=== PATIENT | female | born 1955 | race Caucasian/White ===

== ENCOUNTER 2024-04-23 14:13 | Outpatient (AMB) | payer MEDICARE, BC, SELFPAY ==
--- NOTE | 2024-04-23 14:31 | A.OFFVIS_ITS ---
Intake Visit Reasons: chronic UTI/ neuromuscular duysfunction of bladder Intake Note: New patient is present for Chronic UTI/Nueromuscular Dys of Bladder Patient has Suprapubic Catheter Family history of bladder Cancer(father) Patient gets her Catheter changed every 2 weeks due to getting infections Frequently Patient states that she currently has a UTI and will be getting her antibiotics later today. Patient has had SPT Catheter for 13 years Allergies cefazolin Allergy (Intermediate, Verified 04/23/24 14:49) dermatitis diphenhydramine Allergy (Intermediate, Verified 04/23/24 14:49) other sulfamethoxazole [From Sulfamethoxazole-Trimethoprim] Allergy (Intermediate, Verified 04/23/24 14:49) dyspnea trimethoprim [From Sulfamethoxazole-Trimethoprim] Allergy (Intermediate, Verified 04/23/24 14:49) dyspnea metaxalone Adverse Reaction (Intermediate, Verified 04/23/24 14:49) Depression adhesive tape silicones Allergy (Intermediate, Uncoded 04/23/24 14:49) Rash HPI Comments Details: Beena is a pleasant female. She is a patient of . She has seen for the following urologic conditions - paraplegic with neurogenic bladder Neurogenic bladder Longstanding paraplegia Suprapubic tube Does not cycle bladder Frequent UTIs - had followed with Dr. Dwyer for many years. On vitamin-C and methenamine. Discussion regarding bladder mucosal protection with bladder cycling Would need Botox in order to attempt bladder cycling Can be arranged with 200 units [facility] Medical History (Updated 05/04/24 @ 17:44 by Daniele Hoskins MD) Femur fracture Sleep apnea PONV (postoperative nausea and vomiting) Paraplegia Osteoporosis Deep vein thrombosis Fibromyalgia Heart murmur Suprapubic catheter Other hydronephrosis Recurrent UTI Neurogenic bladder Surgical History (Updated 04/23/24 @ 14:38 by DAMION Gauthier) H/O lumbosacral spine surgery History of hernia repair History of gastric bypass History of cholecystectomy History of carpal tunnel release Family History (Updated 04/23/24 @ 14:39 by DAMION Gauthier) Other Arthritis COPD (chronic obstructive pulmonary disease) OA (osteoarthritis) Stroke Urinary bladder cancer Social History (Updated 04/23/24 @ 14:40 by DAMION Gauthier) Patient Tobacco Use Status: Never used Tobacco Review of Systems Const Denies chills and Denies fever(s) Card Reports no additional complaints and Denies syncope Resp Denies cough GI Denies abdominal pain and Denies heartburn Reports as per HPI and Denies change in libido Neuro Denies syncope Psych Denies change in libido Endo Denies change in libido Physical Exam Const General: cooperative, healthy appearing, comfortable and no acute distress Orientation/consciousness: patient oriented x3 HEENT Face and sinus: Yes normal facial exam Mouth: moist mucous membranes Neck Neck: Yes normal visual inspection, Yes full ROM and Yes trachea midline Chest Chest palpation & inspection: normal inspection of the chest Resp Effort & Inspection: normal respiratory effort, able to speak in complete sentences and no respiratory distress GI Inspection: Yes normal to inspection Back/Spine/Pelvis Cervical Spine: normal cervical lordosis Thoracic/Lumbar Spine: thoracic and lumbar spine normal to inspection Skin General skin exam: no rashes or lesions noted Neuro General: patient oriented x3, gait normal, tone normal and moves all extremities Extrem General: Yes normal to inspection and Yes capillary refill normal Assessment & Plan Assessment & Plan (1) Paraplegia: Code(s): G82.20 - Paraplegia, unspecified Category: Medical (2) Suprapubic catheter: Code(s): Z93.59 - Other cystostomy status Category: Medical (3) Neurogenic bladder: Code(s): N31.9 - Neuromuscular dysfunction of bladder, unspecified Category: Medical Plan Risks, benefits and alternatives to therapy were discussed. These include but are not limited to infection, bleeding, damage to local organs and tissues, need for further interventions. Anesthetic risks regarding cardiac arrhythmia, blood clots, and potential mortality were discussed. The patient understands the typical recovery time and the outpatient nature of the procedure. After consideration of these risks the patient gives full informed consent and they wish to move ahead with the procedure. Cystoscopy with Botox 200 units Patient Instructions: Imaging studies, laboratory and physical exam results were discussed and reviewed in detail. No major barriers to patient understanding were identified. An opportunity to ask questions regarding the treatment plan was provided. All questions were answered. The patient expressed understanding and agreement with the above treatment plan. The patient is aware they should contact our office by phone for worsening of their current condition or the appearance of new urologic symptoms. Compliance is encouraged with any medications and followup testing that is ordered. It is a privilege to participate in the urologic care of your patient. If you have any questions or concerns regarding treatment for the above conditions, or other urologic issues, please do not hesitate to contact me. The office telephone contact is [phone]. This note is constructed using voice recognition software. While every effort has been made to ensure accuracy boilermaker assembly and erection errors may have been included. Yours sincerely, Dr Daniele Hoskins MD, DAV[facility] - Urology Providers of Expert, Compassionate Care for the Genitourinary System Coding Level of Care Code New Pt Level 4 (58861) Diagnoses Paraplegia G82.20 Suprapubic catheter Z93.59 Neurogenic bladder N31.9
== END 2024-04-23 15:38 | disposition home or self-care (01) ==
PROVIDERS: PCP Internal Medicine Nephrology; Visit Provider Urology
DX: G82.20 Paraplegia, unspecified (principal); N31.9 Neuromuscular dysfunction of bladder, unspecified; Z93.59 Other cystostomy status
CPT/HCPCS: 99204

== ENCOUNTER → 2024-04-23 14:13 | Outpatient (BNVA) | payer MEDICARE, BC, SELFPAY | PROVIDERS: PCP Internal Medicine Nephrology; Visit Provider Urology | DX: N31.9 Neuromuscular dysfunction of bladder, unspecified (principal); G82.20 Paraplegia, unspecified; N39.0 Urinary tract infection, site not specified; Z80.52 Family history of malignant neoplasm of bladder; Z93.50 Unspecified cystostomy status | CPT/HCPCS: 99202 ==

== ENCOUNTER 2024-05-17 08:29 | Day surgery (SDC) | payer MEDICARE, BC, SELFPAY ==
--- NOTE | 2024-05-14 13:45 | HO.ANESPROP2 ---
Documented by User: Claudia Silva NP 05/14/24 13:46 HPI - Anesthesia Eval Consult details Narrative: 68yo F for Cystoscopy Botox Injection Paraplegia PONV PMFSH Active Problems Active Problems: All Active Problems Paraplegia (Acute) Suprapubic catheter (Acute) Neurogenic bladder (Acute) Past Medical History Medical History (Updated 05/04/24 @ 17:44 by Daniele Hoskins MD) Femur fracture Sleep apnea PONV (postoperative nausea and vomiting) Paraplegia Osteoporosis Deep vein thrombosis Fibromyalgia Heart murmur Suprapubic catheter Other hydronephrosis Recurrent UTI Neurogenic bladder Family History Family History (Updated 04/23/24 @ 14:39 by DAMION Gauthier) Other Arthritis COPD (chronic obstructive pulmonary disease) OA (osteoarthritis) Stroke Urinary bladder cancer Surgical History Surgical History (Updated 04/23/24 @ 14:38 by DAMION Gauthier) H/O lumbosacral spine surgery History of hernia repair History of gastric bypass History of cholecystectomy History of carpal tunnel release Social History Social History (Updated 04/23/24 @ 14:40 by DAMION Gauthier) Patient Tobacco Use Status: Never used Tobacco Use of substances other than those prescribed or required for medical reasons: No Are you DNR?: No Advance Directives: No Advance Directives Information Provided: Yes Meds Allergies Allergy/AdvReac Type Severity Reaction Status Date / Time cefazolin Allergy Intermediate dermatitis Verified 05/17/24 09:19 diphenhydramine Allergy Intermediate other Verified 05/17/24 09:19 sulfamethoxazole Allergy Intermediate dyspnea Verified 05/17/24 09:19 [From Sulfamethoxazole-Trimethoprim] trimethoprim Allergy Intermediate dyspnea Verified 05/17/24 09:19 [From Sulfamethoxazole-Trimethoprim] metaxalone AdvReac Intermediate Depression Verified 05/17/24 09:19 adhesive tape silicones Allergy Intermediate Rash Uncoded 05/17/24 09:19 Home Medications ?Medication ?Instructions ?Recorded ?Confirmed ?Last Taken ?Type ascorbic acid (vitamin C) 500 mg 500 mg PO BID 04/23/24 05/17/24 Unknown History tablet (Vitamin C) duloxetine 60 mg capsule,delayed 60 mg PO DAILY 04/23/24 05/17/24 Unknown History release methenamine hippurate 1 gram tablet 1 g PO BID 04/23/24 05/17/24 Unknown History naloxone 4 mg/actuation nasal spray intranasal 04/23/24 Unknown History topiramate 200 mg tablet 200 mg PO DAILY 04/23/24 05/17/24 Unknown History morphine 15 mg tablet,extended 15 mg PO TID 05/17/24 05/17/24 Unknown History release oxycodone 15 mg tablet 15 mg PO QID PRN Pain 05/17/24 05/17/24 05/17/24 History Assessment and Plan Assessment Anesthesia Assessment: Chart Reviewed Documented by User: Tito Carmona MD 05/17/24 11:25 PMFSH Past Medical History Medical History (Updated 05/04/24 @ 17:44 by Daniele Hoskins MD) Femur fracture Sleep apnea PONV (postoperative nausea and vomiting) Paraplegia Osteoporosis Deep vein thrombosis Fibromyalgia Heart murmur Suprapubic catheter Other hydronephrosis Recurrent UTI Neurogenic bladder Family History Family History (Updated 04/23/24 @ 14:39 by DAMION Gauthier) Other Arthritis COPD (chronic obstructive pulmonary disease) OA (osteoarthritis) Stroke Urinary bladder cancer Family history of problems with anesthesia: No Surgical History Surgical History (Updated 04/23/24 @ 14:38 by DAMION Gatuhier) H/O lumbosacral spine surgery History of hernia repair History of gastric bypass History of cholecystectomy History of carpal tunnel release History of Problems with Anesthesia: No Social History Social History (Updated 04/23/24 @ 14:40 by DAMION Gauthier) Patient Tobacco Use Status: Never used Tobacco Use of substances other than those prescribed or required for medical reasons: No Are you DNR?: No Advance Directives: No Advance Directives Information Provided: Yes Meds Allergies Allergy/AdvReac Type Severity Reaction Status Date / Time cefazolin Allergy Intermediate dermatitis Verified 05/17/24 09:19 diphenhydramine Allergy Intermediate other Verified 05/17/24 09:19 sulfamethoxazole Allergy Intermediate dyspnea Verified 05/17/24 09:19 [From Sulfamethoxazole-Trimethoprim] trimethoprim Allergy Intermediate dyspnea Verified 05/17/24 09:19 [From Sulfamethoxazole-Trimethoprim] metaxalone AdvReac Intermediate Depression Verified 05/17/24 09:19 adhesive tape silicones Allergy Intermediate Rash Uncoded 05/17/24 09:19 Home Medications ?Medication ?Instructions ?Recorded ?Confirmed ?Last Taken ?Type ascorbic acid (vitamin C) 500 mg 500 mg PO BID 04/23/24 05/17/24 Unknown History tablet (Vitamin C) duloxetine 60 mg capsule,delayed 60 mg PO DAILY 04/23/24 05/17/24 Unknown History release methenamine hippurate 1 gram tablet 1 g PO BID 04/23/24 05/17/24 Unknown History naloxone 4 mg/actuation nasal spray intranasal 04/23/24 Unknown History topiramate 200 mg tablet 200 mg PO DAILY 04/23/24 05/17/24 Unknown History morphine 15 mg tablet,extended 15 mg PO TID 05/17/24 05/17/24 Unknown History release oxycodone 15 mg tablet 15 mg PO QID PRN Pain 05/17/24 05/17/24 05/17/24 History Exam Airway Mallampati Class: I TM Dist: >3cm Neck ROM: Full Denture: Upper Heart: ok Lungs: RA SpO2 95%. Assessment and Plan Assessment Anesthesia Assessment: Anesthesia Plan Discussed Final Anesthetic Review Family History of Problems with Anesthesia: No History of Problems with Anesthesia: No NPO: Yes ASA Class: IV Final Preanesthetic Review: No Changes in Pt Med Stat, Meds/Allgs Chart Reviewed, Consent Obtained/Reviewed and Anes Risks/Benef Reviewed Patient Risk: High Procedure Risk: Low Anesthetic Plan Anesthetic Plan: Agree w/ Assess. and Plan and TIVA Disposition: Standard PACU
[2024-05-17 09:57] VITALS: BP 105/42; PULSE 85; RESP 18; TEMP 36.7; O2SAT 95; BMI 28.9
[2024-05-17] MEDS: Lactated Ringers 1,000 ML 50 ML IVCONT (10:12)
--- NOTE | 2024-05-17 11:04 | MHC.SHP ---
Pre-Procedural Eval Section A - 24 Hr Update-Section A only Date of Service: 05/17/24 The patient is an INPATIENT: No Changes since office visit: No Cold of Flu in the past 2 weeks, No New Medical Problems, No Changes in Medication and No Patient answered all questions The patient has been examined within 24 hours of the surgical procedure. The History & Physical has been completed within 30 days and I have reviewed it.: Yes Section B - Complete if H&P > 30 days Chief Complaint: Neuromuscular dysfunction of bladder, unspecified Details of Present Illness: Cystoscopy with Botox to bladder Allergies: Allergies Allergy/AdvReac Type Severity Reaction Status Date / Time cefazolin Allergy Intermediate dermatitis Verified 05/17/24 09:19 diphenhydramine Allergy Intermediate other Verified 05/17/24 09:19 sulfamethoxazole Allergy Intermediate dyspnea Verified 05/17/24 09:19 [From Sulfamethoxazole-Trimethoprim] trimethoprim Allergy Intermediate dyspnea Verified 05/17/24 09:19 [From Sulfamethoxazole-Trimethoprim] metaxalone AdvReac Intermediate Depression Verified 05/17/24 09:19 adhesive tape silicones Allergy Intermediate Rash Uncoded 05/17/24 09:19 Plan Diagnosis/Plan: Unchanged I have reviewed the history and physical and performed a pertinent physical examination on my patient. No changes have occurred unless specified. Time Spent With Patient Time: Total time managing care of this patient today ____ minutes.
--- NOTE | 2024-05-17 11:56 | W.PM.OPN ---
Operative Note Operative Note Date of Service: 05/17/24 Narrative: PreOperative Diagnosis: Neurogenic bladder with failure of medications Post Operative Diagnosis: Neurogenic bladder with failure of medications Procedure: Cystoscopy with injection 200 units Botox intra detrusor muscle, change of suprapubic tube Surgeon: Dr Daniele Hoskins Anesthesia: Sedation Indications for procedure: Is a very pleasant 68-year-old female. Neurogenic bladder secondary to paraplegia. Long-term indwelling suprapubic tube. Bladder spasm with persistent pain and poor filling. Procedure: After informed consent was verified the patient was brought to the operating room and placed in a supine position. Anesthesia was administered per protocol. Cystoscopy performed with 22 Divehi cystoscope. Bladder was emptied of urine. Bladder was refilled. Using 200 units of Botox mixed in 10 cc of normal saline injections were placed at the back wall of the bladder. 0.5cc placed at each injection site. Injections were placed in a grid 5 across and for high. Injections were placed from the inferior to superior position. Trabeculations on the bladder wall with targeted for each injection site. Suprapubic tube changed to 20 Divehi silastic. Procedure was tolerated well. Patient was extubated and transferred in stable condition to the recovery area. Pathology: None Drains: None
[2024-05-17 12:04] VITALS: BP 103/50; PULSE 71; RESP 18; TEMP 36.3; O2SAT 98
[2024-05-17 12:09] VITALS: BP 97/57; PULSE 74; RESP 17; O2SAT 99
[2024-05-17 12:23] VITALS: BP 98/47; PULSE 68; RESP 17; TEMP 36.1; O2SAT 98
== END 2024-05-17 13:15 | disposition home or self-care (01) ==
PROVIDERS: PCP Family Medicine; Visit Provider Urology
PROC: 3E0K8GC Introduction of Other Therapeutic Substance into Genitourinary Tract, Via Natural or Artificial Opening Endoscopic (ICD-10-PCS; CPT 52287; principal; 2024-05-17 10:20)
DX: N31.9 Neuromuscular dysfunction of bladder, unspecified (principal); N32.89 Other specified disorders of bladder; Z93.59 Other cystostomy status; G82.20 Paraplegia, unspecified; Z87.440 Personal history of urinary (tract) infections; M81.0 Age-related osteoporosis without current pathological fracture; M79.7 Fibromyalgia; G47.30 Sleep apnea, unspecified; Z88.1 Allergy status to other antibiotic agents; Z88.8 Allergy status to other drugs, medicaments and biological substances; L23.1 Allergic contact dermatitis due to adhesives; Z79.899 Other long term (current) drug therapy; Z98.84 Bariatric surgery status; Z98.890 Other specified postprocedural states
CPT/HCPCS: 52287; 51705; J0585; J2704; J3010

== ENCOUNTER → 2024-05-17 08:29 | Outpatient (BNV) | payer MEDICARE, BC, SELFPAY | PROVIDERS: PCP Family Medicine; Visit Provider Urology | DX: N31.9 Neuromuscular dysfunction of bladder, unspecified (principal) | CPT/HCPCS: 51705; 52287 ==

== ENCOUNTER → 2024-06-01 10:42 | Outpatient (BNVA) | payer MEDICARE, BC, SELFPAY | PROVIDERS: PCP Family Medicine; Visit Provider Urology ==

== ENCOUNTER 2024-08-24 11:58 | Outpatient (AMB) | payer MEDICARE, BC, SELFPAY ==
--- NOTE | 2024-08-24 11:59 | A.OFFVIS_ITS ---
Intake Visit Reasons: Cysto, Botox- follow up Intake Note: Patient is Present for Follow Up Cysto/Botox Urology Medication: Methenamine, Vitamin C, Oxybutynin Antibiotic Allergies:Cefazosin, Sulfa, Trimethroprim Blood Thinners: None Public Health Social Worker Required: No Real Estate Transaction Coordinator: Real Estate Transaction Coordinator Present Accompanied by: Family/Other Allergies cefazolin Allergy (Intermediate, Verified 08/24/24 12:03) dermatitis diphenhydramine Allergy (Intermediate, Verified 08/24/24 12:03) other sulfamethoxazole [From Sulfamethoxazole-Trimethoprim] Allergy (Intermediate, Verified 08/24/24 12:03) dyspnea trimethoprim [From Sulfamethoxazole-Trimethoprim] Allergy (Intermediate, Verified 08/24/24 12:03) dyspnea metaxalone Adverse Reaction (Intermediate, Verified 08/24/24 12:03) Depression adhesive tape silicones Allergy (Intermediate, Uncoded 08/24/24 12:03) Rash HPI Comments Details: Beena is a pleasant female. She is a patient of . She has seen for the following urologic conditions - paraplegic with neurogenic bladder Discussed prior Botox Will repeat in September Thinks there has been some benefit Uses 20 [place] Bard silastic catheter for suprapubic drainage Required to change catheter every 2 weeks If does not change catheter every 2 weeks has detrimental urinary tract infection. These have previously resulted in sepsis with ICU admission. Prescriptions renewed Catheter to be changed every 2 weeks to minimize detrimental UTI recurrence Neurogenic bladder Longstanding paraplegia Suprapubic tube Does not cycle bladder Frequent UTIs - had followed with Dr. Dwyer for many years. On vitamin-C and methenamine. Discussion regarding bladder mucosal protection with bladder cycling Botox - May 2024 [facility] Medical History (Updated 05/04/24 @ 17:44 by Daniele Hoskins MD) Femur fracture Sleep apnea PONV (postoperative nausea and vomiting) Paraplegia Osteoporosis Deep vein thrombosis Fibromyalgia Heart murmur Suprapubic catheter Other hydronephrosis Recurrent UTI Neurogenic bladder Surgical History (Updated 04/23/24 @ 14:38 by DAMION Gauthier) H/O lumbosacral spine surgery History of hernia repair History of gastric bypass History of cholecystectomy History of carpal tunnel release Family History (Updated 04/23/24 @ 14:39 by DAMION Gauthier) Other Arthritis COPD (chronic obstructive pulmonary disease) OA (osteoarthritis) Stroke Urinary bladder cancer Social History (Updated 04/23/24 @ 14:40 by DAMION Gauthier) Patient Tobacco Use Status: Never used Tobacco Review of Systems Const Denies chills and Denies fever(s) Card Reports no additional complaints and Denies syncope Resp Denies cough GI Denies abdominal pain and Denies heartburn Reports as per HPI and Denies change in libido Neuro Denies syncope Psych Denies change in libido Endo Denies change in libido Physical Exam Const General: cooperative, healthy appearing, comfortable and no acute distress Orientation/consciousness: patient oriented x3 HEENT Face and sinus: Yes normal facial exam Mouth: moist mucous membranes Neck Neck: Yes normal visual inspection, Yes full ROM and Yes trachea midline Chest Chest palpation & inspection: normal inspection of the chest Resp Effort & Inspection: normal respiratory effort, able to speak in complete sentences and no respiratory distress GI Inspection: Yes normal to inspection Back/Spine/Pelvis Cervical Spine: normal cervical lordosis Thoracic/Lumbar Spine: thoracic and lumbar spine normal to inspection Skin General skin exam: no rashes or lesions noted Neuro General: patient oriented x3, gait normal, tone normal and moves all extremities Extrem General: Yes normal to inspection and Yes capillary refill normal Assessment & Plan Assessment & Plan (1) Suprapubic catheter: Code(s): Z93.59 - Other cystostomy status Category: Medical (2) Paraplegia: Code(s): G82.20 - Paraplegia, unspecified Category: Medical (3) Neurogenic bladder: Code(s): N31.9 - Neuromuscular dysfunction of bladder, unspecified Category: Medical Plan Six-month follow-up Medications: New syringe (disposable) (BD Syringe Catheter Tip) As directed - for bladder irrigation 4 ea 1RF catheter (Silastic Carbajal Catheter) As directed - Bard 20 Fr Silastic catheter - 6 catheters for 12 weeks. Requires 1 catheter for every 2 weeks secondary to UTI with hospital admission 6 ea 1RF Changed From catheterization tray As directed, 20 uzbek carbajal catheter, change catheter every two weeks. 10 ea 12RF To catheterization tray As directed change catheter every two weeks secondary to frequent UTI with hospital admission 6 ea 1RF From urinary bag (Urinary Leg Bag kit) As directed 12 ea 12RF To urinary bag (Urinary Leg Bag kit) As directed - 1 bag every 30 days 3 ea 1RF Refilled irrigation set As directed 6 ea 1RF Discontinued oxybutynin chloride Discontinued Reason: Doctor's Order 5 mg PO TID 5 days PRN 15 tabs 0RF bladder spasms Patient Instructions: Imaging studies, laboratory and physical exam results were discussed and reviewed in detail. No major barriers to patient understanding were identified. An opportunity to ask questions regarding the treatment plan was provided. All questions were answered. The patient expressed understanding and agreement with the above treatment plan. The patient is aware they should contact our office by phone for worsening of their current condition or the appearance of new urologic symptoms. Compliance i s encouraged with any medications and followup testing that is ordered. It is a privilege to participate in the urologic care of your patient. If you have any questions or concerns regarding treatment for the above conditions, or other urologic issues, please do not hesitate to contact me. The office telephone contact is [phone]. This note is constructed using voice recognition software. While every effort has been made to ensure accuracy laundry laborer errors may have been included. Yours sincerely, Dr Daniele Hoskins MD, [facility] - Urology Providers of Expert, Compassionate Care for the Genitourinary System Coding Level of Care Code Est Pt Level 4 (55084) Diagnoses Suprapubic catheter Z93.59 Paraplegia G82.20 Neurogenic bladder N31.9
== END 2024-08-24 12:38 | disposition home or self-care (01) ==
PROVIDERS: PCP Family Medicine; Visit Provider Urology
DX: Z93.59 Other cystostomy status (principal); G82.20 Paraplegia, unspecified; N31.9 Neuromuscular dysfunction of bladder, unspecified
CPT/HCPCS: 99214

== ENCOUNTER → 2024-08-24 11:58 | Outpatient (BNVA) | payer MEDICARE, BC, SELFPAY | PROVIDERS: PCP Family Medicine; Visit Provider Urology | DX: N31.9 Neuromuscular dysfunction of bladder, unspecified (principal); G82.20 Paraplegia, unspecified; Z93.59 Other cystostomy status | CPT/HCPCS: 99212 ==

== ENCOUNTER 2024-10-04 12:20 | Day surgery (SDC) | payer MEDICARE, BC, SELFPAY ==
[2024-09-30 10:36] VITALS: BMI 28.9
--- NOTE | 2024-10-01 12:18 | P.CONAN_ITS ---
Documented by User: Claudia Silva NP 10/01/24 12:20 HPI - Anesthesia Eval Consult details Narrative: 69yo F for Cystoscopy Botox Insulation 200 units s/p same 04/2024 with TIVA Paraplegia PONV Chronic opioids PMFSH Active Problems Active Problems: All Active Problems Urinary retention (Acute) Paraplegia (Acute) Suprapubic catheter (Acute) Neurogenic bladder (Acute) Past Medical History Medical History (Updated 09/30/24 @ 10:47 by Alma Delia Bonilla RN) Peripheral neuropathy HTN (hypertension) Depression Femur fracture Sleep apnea PONV (postoperative nausea and vomiting) Paraplegia Osteoporosis Deep vein thrombosis Fibromyalgia Heart murmur Suprapubic catheter Other hydronephrosis Recurrent UTI Neurogenic bladder Family History Family History (Updated 04/23/24 @ 14:39 by DAMION Gauthier) Other Arthritis COPD (chronic obstructive pulmonary disease) OA (osteoarthritis) Stroke Urinary bladder cancer Family history of problems with anesthesia: No Surgical History Surgical History (Updated 09/30/24 @ 10:23 by Alma Delia Bonilla RN) Hx of cystoscopy H/O lumbosacral spine surgery History of hernia repair History of gastric bypass History of cholecystectomy History of carpal tunnel release History of Problems with Anesthesia: No Social History Social History (Updated 04/23/24 @ 14:40 by DAMION Gauthier) Patient Tobacco Use Status: Never used Tobacco Advance Directives: No Advance Directives Information Provided: Yes Meds Allergies Allergy/AdvReac Type Severity Reaction Status Date / Time cefazolin Allergy Intermediate dermatitis Verified 10/04/24 13:51 diphenhydramine Allergy Intermediate other Verified 10/04/24 13:51 sulfamethoxazole Allergy Intermediate dyspnea Verified 10/04/24 13:51 [From Sulfamethoxazole-Trimethoprim] trimethoprim Allergy Intermediate dyspnea Verified 10/04/24 13:51 [From Sulfamethoxazole-Trimethoprim] metaxalone AdvReac Intermediate Depression Verified 10/04/24 13:51 adhesive tape silicones Allergy Intermediate Rash Uncoded 10/04/24 13:51 Home Medications ?Medication ?Instructions ?Recorded ?Confirmed ?Last Taken ?Type ascorbic acid (vitamin C) 500 mg 500 mg PO BID 04/23/24 10/04/24 Unknown History tablet (Vitamin C) duloxetine 60 mg capsule,delayed 60 mg PO DAILY 04/23/24 10/04/24 Unknown History release methenamine hippurate 1 gram tablet 1 g PO BID 04/23/24 10/04/24 Unknown History naloxone 4 mg/actuation nasal spray 4 mg intranasal ONCE PRN overdose 04/23/24 10/04/24 Unknown History topiramate 200 mg tablet 200 mg PO DAILY 04/23/24 10/04/24 Unknown History morphine 15 mg tablet,extended 15 mg PO TID 05/17/24 10/04/24 Unknown History release oxycodone 15 mg tablet 15 mg PO QID PRN Pain 05/17/24 10/04/24 10/04/24 11:00 History acyclovir 200 mg capsule 200 mg PO TID PRN Outbreak 09/30/24 10/04/24 Unknown History aspirin 81 mg tablet,delayed 81 mg PO DAILY 09/30/24 10/04/24 Unknown History release baclofen 10 mg tablet 20 mg PO TID 09/30/24 10/04/24 10/04/24 11:00 History calcium citrate 250 mg 2 tab PO BID 09/30/24 10/04/24 Unknown History calcium-vitamin D3 5 mcg (200 unit) tablet furosemide 40 mg tablet 60 mg PO DAILY 09/30/24 10/04/24 Unknown History multivitamin 1 tab PO DAILY 09/30/24 10/04/24 Unknown History Exam Height,Weight and Vital Signs: Height 5 ft 6 in Weight 81.193 kg Assessment and Plan Assessment Anesthesia Assessment: Chart Reviewed Final Anesthetic Review Family History of Problems with Anesthesia: No History of Problems with Anesthesia: No Documented by User: Ginger Arora MD 10/04/24 14:16 [facility] Past Medical History Medical History (Updated 09/30/24 @ 10:47 by Alma Delia Bonilla RN) Peripheral neuropathy HTN (hypertension) Depression Femur fracture Sleep apnea PONV (postoperative nausea and vomiting) Paraplegia Osteoporosis Deep vein thrombosis Fibromyalgia Heart murmur Suprapubic catheter Other hydronephrosis Recurrent UTI Neurogenic bladder Family History Family History (Updated 04/23/24 @ 14:39 by DAMION Gauthier) Other Arthritis COPD (chronic obstructive pulmonary disease) OA (osteoarthritis) Stroke Urinary bladder cancer Surgical History Surgical History (Updated 09/30/24 @ 10:23 by Alma Delia Bonilla RN) Hx of cystoscopy H/O lumbosacral spine surgery History of hernia repair History of gastric bypass History of cholecystectomy History of carpal tunnel release Social History Social History (Updated 04/23/24 @ 14:40 by DAMION Gauthier) Patient Tobacco Use Status: Never used Tobacco Advance Directives: No Advance Directives Information Provided: Yes Meds Allergies Allergy/AdvReac Type Severity Reaction Status Date / Time cefazolin Allergy Intermediate dermatitis Verified 10/04/24 13:51 diphenhydramine Allergy Intermediate other Verified 10/04/24 13:51 sulfamethoxazole Allergy Intermediate dyspnea Verified 10/04/24 13:51 [From Sulfamethoxazole-Trimethoprim] trimethoprim Allergy Intermediate dyspnea Verified 10/04/24 13:51 [From Sulfamethoxazole-Trimethoprim] metaxalone AdvReac Intermediate Depression Verified 10/04/24 13:51 adhesive tape silicones Allergy Intermediate Rash Uncoded 10/04/24 13:51 Home Medications ?Medication ?Instructions ?Recorded ?Confirmed ?Last Taken ?Type ascorbic acid (vitamin C) 500 mg 500 mg PO BID 04/23/24 10/04/24 Unknown History tablet (Vitamin C) duloxetine 60 mg capsule,delayed 60 mg PO DAILY 04/23/24 10/04/24 Unknown History release methenamine hippurate 1 gram tablet 1 g PO BID 04/23/24 10/04/24 Unknown History naloxone 4 mg/actuation nasal spray 4 mg intranasal ONCE PRN overdose 04/23/24 10/04/24 Unknown History topiramate 200 mg tablet 200 mg PO DAILY 04/23/24 10/04/24 Unknown History morphine 15 mg tablet,extended 15 mg PO TID 05/17/24 10/04/24 Unknown History release oxycodone 15 mg tablet 15 mg PO QID PRN Pain 05/17/24 10/04/24 10/04/24 11:00 History acyclovir 200 mg capsule 200 mg PO TID PRN Outbreak 09/30/24 10/04/24 Unknown History aspirin 81 mg tablet,delayed 81 mg PO DAILY 09/30/24 10/04/24 Unknown History release baclofen 10 mg tablet 20 mg PO TID 09/30/24 10/04/24 10/04/24 11:00 History calcium citrate 250 mg 2 tab PO BID 09/30/24 10/04/24 Unknown History calcium-vitamin D3 5 mcg (200 unit) tablet furosemide 40 mg tablet 60 mg PO DAILY 09/30/24 10/04/24 Unknown History multivitamin 1 tab PO DAILY 09/30/24 10/04/24 Unknown History Exam Airway Mallampati Class: II TM Dist: >3cm Neck ROM: Full Denture: Upper Heart: rrr Lungs: cta Assessment and Plan Assessment Anesthesia Assessment: Anesthesia Plan Discussed Final Anesthetic Review NPO: Yes ASA Class: III Final Preanesthetic Review: No Changes in Pt Med Stat, Meds/Allgs Chart Reviewed and Consent Obtained/Reviewed Patient Risk: Intermediate Procedure Risk: Low Anesthetic Plan Anesthetic Plan: MAC: Disposition: Standard PACU
[2024-10-04 13:56] VITALS: BP 110/55; PULSE 55; RESP 16; TEMP 36.4; O2SAT 99; BMI 28.1
[2024-10-04] MEDS: Lactated Ringers 1,000 ML 100 ML IVCONT (14:31)
--- NOTE | 2024-10-04 15:03 | MHC.SHP ---
Pre-Procedural Eval Section A - 24 Hr Update-Section A only Date of Service: 10/04/24 The patient is an INPATIENT: No Changes since office visit: No Cold of Flu in the past 2 weeks, No New Medical Problems, No Changes in Medication and No Patient answered all questions The patient has been examined within 24 hours of the surgical procedure. The History & Physical has been completed within 30 days and I have reviewed it.: Yes Section B - Complete if H&P > 30 days Chief Complaint: Neuromuscular dysfunction of bladder, unspecified Details of Present Illness: Cystoscopy, bladder Botox Allergies: Allergies Allergy/AdvReac Type Severity Reaction Status Date / Time cefazolin Allergy Intermediate dermatitis Verified 10/04/24 13:51 diphenhydramine Allergy Intermediate other Verified 10/04/24 13:51 sulfamethoxazole Allergy Intermediate dyspnea Verified 10/04/24 13:51 [From Sulfamethoxazole-Trimethoprim] trimethoprim Allergy Intermediate dyspnea Verified 10/04/24 13:51 [From Sulfamethoxazole-Trimethoprim] metaxalone AdvReac Intermediate Depression Verified 10/04/24 13:51 adhesive tape silicones Allergy Intermediate Rash Uncoded 10/04/24 13:51 Plan I have reviewed the history and physical and performed a pertinent physical examination on my patient. No changes have occurred unless specified. Time Spent With Patient Time: Total time managing care of this patient today ____ minutes.
--- NOTE | 2024-10-04 15:37 | P.OP_ITS ---
Operative Note Operative Note Date of Service: 10/04/24 Narrative: PreOperative Diagnosis: Neurogenic bladder with failure of medications Post Operative Diagnosis: Neurogenic bladder with failure of medications Procedure: Cystoscopy with injection 200 units Botox intra detrusor muscle Surgeon: Dr Daniele Hoskins Anesthesia: Sedation Indications for procedure: Is a very pleasant 69-year-old female. Neurogenic bladder secondary to paraplegia. Long-term indwelling suprapubic tube. Bladder spasm with persistent pain and poor filling. Procedure: After informed consent was verified the patient was brought to the operating room and placed in a supine position. Anesthesia was administered per protocol. Cystoscopy performed with 22 Kisw[place]ili cystoscope. Bladder was emptied of urine. Bladder was refilled. Using 200 units of Botox mixed in 10 cc of normal saline injections were placed at the back wall of the bladder. 0.5cc placed at each i njection site. Injections were placed in a grid 5 across and for high. Injections were placed from the inferior to superior position. Trabeculations on the bladder wall with targeted for each injection site. Procedure was tolerated well. Patient was extubated and transferred in stable condition to the recovery area. Pathology: None Drains: None
[2024-10-04 15:45] VITALS: BP 95/35; PULSE 72; RESP 13; TEMP 36.3; O2SAT 100
[2024-10-04 16:00] VITALS: BP 102/53; PULSE 65; RESP 13; O2SAT 100
[2024-10-04 16:08] VITALS: BP 110/52; PULSE 72; RESP 16; TEMP 36.3; O2SAT 100
== END 2024-10-04 16:29 | disposition home or self-care (01) ==
PROVIDERS: PCP Family Medicine; Visit Provider Urology
PROC: 3E0K8GC Introduction of Other Therapeutic Substance into Genitourinary Tract, Via Natural or Artificial Opening Endoscopic (ICD-10-PCS; CPT 52287; principal; 2024-10-04 13:30)
DX: N31.9 Neuromuscular dysfunction of bladder, unspecified (principal); R33.8 Other retention of urine; Z93.59 Other cystostomy status; Z93.6 Other artificial openings of urinary tract status; Z87.440 Personal history of urinary (tract) infections; G82.20 Paraplegia, unspecified; Z99.3 Dependence on wheelchair; M79.7 Fibromyalgia; M81.0 Age-related osteoporosis without current pathological fracture; G47.30 Sleep apnea, unspecified; Z79.891 Long term (current) use of opiate analgesic; Z79.82 Long term (current) use of aspirin; Z79.899 Other long term (current) drug therapy; Z88.1 Allergy status to other antibiotic agents; Z88.2 Allergy status to sulfonamides; Z98.84 Bariatric surgery status; Z98.890 Other specified postprocedural states
CPT/HCPCS: 52287; J0585; J1956; J2003; J2704; J3010

== ENCOUNTER → 2024-10-04 12:20 | Outpatient (BNV) | payer MEDICARE, BC, SELFPAY | PROVIDERS: PCP Family Medicine; Visit Provider Urology | DX: N31.9 Neuromuscular dysfunction of bladder, unspecified (principal) | CPT/HCPCS: 52287 ==

== ENCOUNTER → 2024-10-25 13:09 | Outpatient (BNVA) | payer MEDICARE, BC, SELFPAY | PROVIDERS: PCP Family Medicine; Visit Provider Urology | DX: N31.9 Neuromuscular dysfunction of bladder, unspecified (principal); R33.9 Retention of urine, unspecified | CPT/HCPCS: 51798 ==

== ENCOUNTER 2025-01-11 14:19 | Outpatient (AMB) | payer MEDICARE, BC, SELFPAY ==
--- NOTE | 2025-01-11 14:33 | A.OFFVIS_ITS ---
Intake Visit Reasons: Botox- follow up(SPTube) Intake Note: Patient is present for BOTOX F/U (SPT TUBE) Urology Medication:OXYBUTYNIN Antibiotic Allergy:SULFA,CEFAZOLIN,TRIMETHOPRIM Blood Thinner:ASPIRIN Carpet Installer Required: No Allergies cefazolin Allergy (Intermediate, Verified 01/11/25 14:37) dermatitis diphenhydramine Allergy (Intermediate, Verified 01/11/25 14:37) other sulfamethoxazole [From Sulfamethoxazole-Trimethoprim] Allergy (Intermediate, Verified 01/11/25 14:37) dyspnea trimethoprim [From Sulfamethoxazole-Trimethoprim] Allergy (Intermediate, Verified 01/11/25 14:37) dyspnea metaxalone Adverse Reaction (Intermediate, Verified 01/11/25 14:37) Depression adhesive tape silicones Allergy (Intermediate, Uncoded 01/11/25 14:37) Rash HPI Comments Details: Beena is a pleasant female. She is a patient of . She has seen for the following urologic conditions - paraplegic with neurogenic bladder - recurrent UTI Feels there has been benefit from Botox Would like vitamin-C and methenamine renewed Had UTI which responded to Macrobid Fourteen day macro prescription provided in order to use when symptomatic Uses 20 [place] silastic catheter for suprapubic drainage Required to change catheter every 2 weeks If does not change catheter every 2 weeks has detrimental urinary tract infection. These have previously resulted in sepsis with ICU admission. Neurogenic bladder Longstanding paraplegia Suprapubic tube Does not cycle bladder Frequent UTIs - had followed with Dr. Dwyer for many years. On vitamin-C and methenamine. Discussion regarding bladder mucosal protection with bladder cycling Botox - May 2024, 10/10 Recurrent UTI Microbiology - 09/09 pansensitive E coli [facility] Medical History (Updated 01/11/25 @ 15:20 by Daniele Hoskins MD) Peripheral neuropathy HTN (hypertension) Depression Femur fracture Sleep apnea PONV (postoperative nausea and vomiting) Paraplegia Osteoporosis Deep vein thrombosis Fibromyalgia Heart murmur Suprapubic catheter Other hydronephrosis Recurrent UTI Neurogenic bladder Surgical History (Updated 09/30/24 @ 10:23 by Alma Delia Bonilla RN) Hx of cystoscopy H/O lumbosacral spine surgery History of hernia repair History of gastric bypass History of cholecystectomy History of carpal tunnel release Family History (Updated 04/23/24 @ 14:39 by DAMION Gauthier) Other Arthritis COPD (chronic obstructive pulmonary disease) OA (osteoarthritis) Stroke Urinary bladder cancer Social History (Updated 04/23/24 @ 14:40 by DAMION Gauthier) Patient Tobacco Use Status: Never used Tobacco Review of Systems Const Denies chills and Denies fever(s) Card Reports no additional complaints and Denies syncope Resp Denies cough GI Denies abdominal pain and Denies heartburn Reports as per HPI and Denies change in libido Neuro Denies syncope Psych Denies change in libido Endo Denies change in libido Physical Exam Const General: cooperative, healthy appearing, comfortable and no acute distress Orientation/consciousness: patient oriented x3 HEENT Face and sinus: Yes normal facial exam Mouth: moist mucous membranes Neck Neck: Yes normal visual inspection, Yes full ROM and Yes trachea midline Chest Chest palpation & inspection: normal inspection of the chest Resp Effort & Inspection: normal respiratory effort, able to speak in complete sentences and no respiratory distress GI Inspection: Yes normal to inspection Back/Spine/Pelvis Cervical Spine: normal cervical lordosis Thoracic/Lumbar Spine: thoracic and lumbar spine normal to inspection Skin General skin exam: no rashes or lesions noted Neuro General: patient oriented x3, gait normal, tone normal and moves all extremities Extrem General: Yes normal to inspection and Yes capillary refill normal Assessment & Plan Assessment & Plan (1) Neurogenic bladder: Code(s): N31.9 - Neuromuscular dysfunction of bladder, unspecified Category: Medical (2) Recurrent UTI: Code(s): N39.0 - Urinary tract infection, site not specified Category: Medical Plan Refill methenamine and vitamin-C Refill oxybutynin Add Macrobid 14 days in case she gets in trouble with an infection She will call if feels Botox is wearing off Medications: New nitrofurantoin macrocrystal must administer with a meal/food 100 mg PO BID 14 days 28 caps 0RF N39.0 - Urinary tract infection, site not specified Changed From methenamine hippurate 1 g PO BID To methenamine hippurate 1 g PO BID 90 days 180 tabs 1RF From ascorbic acid (vitamin C) (Vitamin C) 500 mg PO BID To ascorbic acid (vitamin C) (Vitamin C) 500 mg PO BID 90 days 180 tabs 1RF Refilled oxybutynin chloride ER change in dose 10 mg (2 x 5 mg) PO DAILY 90 days 180 tabs 1RF Patient Instructions: This note is constructed using voice recognition software. While every effort has been made to ensure accuracy ibm bpm architect errors may have been included. Imaging studies, laboratory and physical exam results were discussed and reviewed in detail. No major barriers to patient understanding were identified. An opportunity to ask questions regarding the treatment plan was provided. All questions were answered. The patient expressed understanding and agreement with the above treatment plan. The patient is aware they should contact our office by phone for worsening of their current condition or the appearance of new urologic symptoms. Compliance is encouraged with any medications and followup testing that is ordered. It is a privilege to participate in the urologic care of your patient. If you have any questions or concerns regarding treatment for the above conditions, or other urologic issues, please do not hesitate to contact me. The office telephone contact is [phone]. Sincerely, Dr Daniele Hoskins MD, [facility] - Urology Compassionate Specialist Care for the Genitourinary System Coding Level of Care Code Est Pt Level 4 (52699) Diagnoses Neurogenic bladder N31.9 Recurrent UTI N39.0
--- OUTSIDE RECORDS SUMMARY | 2025-01-11 17:57 | XMS_ITS | Clinical Summary ---
Author Organization [facility] Address [address] [place] [address] Care Team Providers Care Sample Distributor Name Role Phone Unavailable Primary Care Provider Unavailabl e Allergies Active Allergy Reactions Criticality Noted Date Comments Adhesive Tape 09/11/2016 Rash Cefazolin 09/11/2016 Metaxalone 09/11/2016 Depression Sulfasalazine 09/11/2016 Rash, SOB Medications Medication Sig Dispensed Refills Start Date End Date Status mesalamine (ASACOL) 400 MG EC tablet Take 400 mg by mouth 3 (three) times a day. 0 Active aspirin EC 81 MG tablet Take 81 mg by mouth daily. 0 Active baclofen (LIORESAL) 10 MG tablet Take 10 mg by mouth 3 (three) times a day. 0 Active Calcium Carbonate Antacid 648 MG TABS Take 648 mg by mouth 3 (three) times a day with meals. 0 Active estradiol (CLIMARA) 0.1 MG/24HR Place 1 patch onto the skin once a week. 0 Active duloxetine (CYMBALTA) DR capsule 20 mg Take 20 mg by mouth daily. 0 Active furosemide (LASIX) 80 MG tablet Take 80 mg by mouth 2 (two) times a day. 0 Active lidocaine (XYLOCAINE) 2 % jelly Apply topically as needed. 0 Active methylphenidate (CONCERTA) 36 MG CR tablet Take 36 mg by mouth every morning. 0 Active Morphine Sulfate ER (MS CONTIN) 15 MG TBCR Take 15 mg by mouth every 12 (twelve) hours. 0 Active nitrofurantoin (MACRODANTIN) 100 MG capsule Take 100 mg by mouth 4 (four) times a day. 0 Active OxyCODONE HCl ER (OXYCONTIN) 20 MG T12A controlled release tablet Take 20 mg by mouth every 12 (twelve) hours. 0 Active venlafaxine (EFFEXOR) 75 MG tablet Take 75 mg by mouth 2 (two) times a day. 0 Active vitamin C (ASCORBIC ACID) 500 MG tablet Take 500 mg by mouth daily. 0 Active SUMAtriptan (IMITREX) 50 MG tablet Take 50 mg by mouth every 2 (two) hours as needed for migraine. 0 Active ibuprofen (ADVIL,MOTRIN) 100 MG/5ML suspension Take 800 mg/kg by mouth every 6 (six) hours as needed for mild pain (1-3). 0 Active nystatin (MYCOSTATIN) ointment Apply topically 2 (two) times a day. 0 Active oxybutynin (DITROPAN) 5 MG tablet Take 5 mg by mouth 3 (three) times a day. 0 Active conjugated estrogens (PREMARIN) vaginal cream Place vaginally daily. 0 Active Social History Tobacco Use Types Packs/Day Years Used Date Smoking Tobacco: Never Assessed Sex and Gender Information Value Date Recorded Sex Assigned at Not on file Gender Identity Not on file Sexual Orientation Not on file Plan of Treatment Health Maintenance Due Date Last Done Comments Hepatitis C Screening 1955 COVID-19 Vaccine (#1) [birth year]07[birth year]1956 Depression Screening 1967 Preventative Health Evaluation 1973 DTap / Tdap / Td (1 - Tdap) 1974 Colon Cancer Screening (Colonoscopy) 2000 Breast Cancer Screening (Mammogram) 2005 Shingrix-Zoster Vaccine (1 of 2) 2005 Fall Risk Assessment 2020 Osteoporosis Screening (DEXA Scan) 2020 Pneumococcal Vaccine (1 of 1 - PCV) 2020 Influenza Vaccine (#1) 2024 RSV Adult > 60+ Yrs or Pregn ant (1 - 1-dose 75+ series) 2030 Hepatitis B Vaccines Aged Out No long er eligible based on patient's age to complete this topic RSV Ped < 20 months Aged Out No longe r eligible based on patient's age to complete this topic
--- OUTSIDE RECORDS SUMMARY | 2025-01-11 17:57 | XMS_ITS | Data Portability ---
Author Organization Formerly [facility] [employer], [email or web address] Address [address] [place] [address] [place] [address] Care Team Providers Care Range Aid Name Role Phone NATIVIDAD MAY Primary Care Provider [phone] NATIVIDAD MAY Referring Provider [phone] Assessment Encounter Date Assessment Date Assessment LastModified by Organization Details LastModified Time 07/27/2021 07/27/2021 IMPRESSION: Chronic headache with migrainous features. Propranolol substitution for metoprolol, since initial neurology consultation May 01, 2020, has helped significantly although partially. She again does not want to make any more changes. She had emphasized that there were long-term fluctuations and she wanted to presiding judge these. She wanted a 3-month follow-up but follow-up ended up being 1 year. Indeed, fluctuations have emerged with at least 2 separate weeks with daily headaches with great humidity. Nevertheless, even with understanding these fluctuations she declines any attempt for optimization of migraine prevention. She has had Climara patch discontinued, no other changes and so, we reviewed: Medication review: Methylphenidate 36 mg twice a day, morphine sulfate extended release 15 mg 4 times a day, oxycodone 15 mg 4 times a day, potassium, baclofen 10 mg 3 times a day, aspirin 81 mg daily, calcium, multivitamin, cyclobenzaprine 10 mg twice a day, duloxetine 60 mg daily, elmiron 100 mg 3 times a day, furosemide 60 mg daily lidocaine jelly. Review of pathway of choice of propranolol: She was on metoprolol for migraine prevention for about a week and thought that it might have been starting to work for her headache syndrome but then stopped because of rash. The rash turned out to be poison chris. She never restarted metoprolol. She was not on the metoprolol for blood pressure control, she emphasizes. She had high blood pressure in the past (2002 per chart) but has no problems with blood pressure more recently. Previous discussions: Initial consultation: Her wonders whether medications could cause part of her headache. Long-term opiate use can cause medication overuse headache. Her untreated sleep apnea may also be a chronic trigger for worsened headaches. She emphasizes that she cannot tolerate sleep apnea mask. PLAN Beena Conde Deangelo July 27, 2021 For migraine prevention: CONTINUE Propranolol ER 80 mg capsule, one capsule every evening Follow-up in 11 months [email or web address] Not available 07/27/2021 13:17:35 07/10/2022 07/10/2022 IMPRESSION: Chronic headache with migrainous features. Migraine is both increased in frequency and change in character? s witched from right to left side mostly. I do not have a good reason. Increase in propranolol has not helped and moderate dose of topiramate has not helped. I will get head CT and increase topiramate. If head CT is unrevealing, we will titrate topiramate to 50 mg twice daily and if this does not help, consider CGRP inhibitor medication. PLAN Beena Conde Deangelo July 10, 2022 CT head without contrast for worsening headache The imaging facility below should call you within a few days. If they do not call within a week, please call them to understand when you will be scheduled for your imaging. If there is any uncertainty or confusion, please call us to help clarify things. [phone] [facility] [address] [place] [address] Phone [phone]? [phone] INCREASE topiramate 25 mg tablets from 2 tablets at bedtime to 3 tablets at bedtime I am taking over the prescription from primary care to give you an appropriate supply. CONTINUE Propranolol ER 120 mg capsule, one capsule every evening I will leave this prescription under management to primary care, who has recently increased the dosage, until such a time as we decide to make any future changes in the medication. Follow-up with Sridevi Vela, neurology PA, after CT head, to discuss results, and to adjust migraine prevention medication as needed if CT head is unrevealing. [email or web address] Not available 07/10/2022 16:12:45 09/11/2022 09/11/2022 IMPRESSION: Chronic headache with migrainous features. In the context of worsening frequency of migraines from 6 or 7/month to nearly daily and a change of character between July 2021 and June 2022, without improvement on increased propranolol or a moderate dose of topiramate, head CT was obtained July 23 2022. This fortunately, did not show any acute or chronic findings. CURRENTLY September 11, 2022: Today, she does describe awakening with headache on most days. She does have a history of both central and obstructive sleep apnea diagnosed about 11 years ago prior to her cord injury but found it difficult to sleep with the BiPAP machine ready and so does not use it. I explained that untreated sleep apnea may be contributing to morning headaches and encouraged her to resume care with sleep medicine (she herself comments that there might be newer options). She would like to discuss it with her PCP. She previously went to sleep medicine services of [facility] at their [place] location. Her PCP has taken back topiramate and increased it to 100 mg nightly. She is off of the propranolol 120 mg extended release. The prescription shows that it was filled she has not been taking it as she thought the topiramate was replacement. I have discontinued the propranolol prescription from us as well as the 25 mg tablets of topiramate. We discussed CGRP inhibitors and I offered a trial. It appears that Aimovig and Emgality are on her formulary. As she has baseline constipation from her spinal cord injury, we discussed the possibility of a trial of Emgality. She would like to discuss it with her PCP whom she sees tomorrow and she will get back to me within the week if she would like to go forward with a trial. I anticipate that this would be covered by her insurance as she did not have benefit from propranolol 120 mg extended release and she has titrated up to 100 mg daily of topiramate since August 05, 2022 without any benefit. PLAN Beena Bright September 11, 2022 For migraine prevention -I recommend getting an updated sleep study and having your sleep apnea treated which can contribute to awakening with headaches. I am happy to refer you but did not do so today as you wish to discuss this with your primary care provider. -If you wish to try a sample of Emgality after your discussion with your primary care provider tomorrow, please contact me at the office in a couple of days and we will make arrangements for you to warehouse picker a sample. Here is information about Emgality dosing and the side effects that we discussed today: Emgality subcutaneous injection, every month: FIRST MONTH: 120 mg injection pens, TWO pens twice in succession, in abdomen, thigh, upper arm or buttocks (use to separate injection sites) EVERY MONTH AFTER: 120 mg injection pen, ONE pen, in abdomen, thigh, upper arm or buttocks. Possible side effects include constipation, nausea, muscle pain, worsening mood, each occurring in about 5-10% of patients. Injection site reactions occur uncommonly, with redness, swelling or pain at the site that usually goes away in a few days. No dangerous injection site reactions have occurred. -CONTINUE topiramate 100 mg tablets from your PCP who has taken back your prescription for topiramate. I have discontinued the prescription from us for the three 25 mg tablets nightly As you are not taking propranolol 120 mg capsule and it did not help, I am discontinuing the prescription for propranolol. Migraine breakthrough You have a prescription for sumatriptan 100 mg tablets. I believe this is from your PCP as well but prescriber information is not available in the EMR. I will defer to your PCP for future prescriptions. I do recommend that you take it as early as possible at the onset of a headache/migraine As you were uncertain about your wish to continue at [facility], we will await arrangements for a follow-up. If I hear from you in the next few days that you would like to move forward with an Emgality trial, we will make arrangements for you to warehouse picker a sample loading dose and make a follow-up in 3 weeks to see how you do on it. I have reviewed chart note and agree with contents and with assessment/plan in particular. Carlos Singh MD, PhD [facility] [email or web address] Not available 09/30/2022 13:09:13 Plan of Treatment Reminders Order Date Submit Date Provider Last Modified By Organization Details Last Modified Time Details Appointments None recorded. Lab None recorded. Referral None recorded. Procedures None recorded. Surgeries None recorded. Imaging CT, head, w/o contrast - CT head without contrast for worsening headache 2021 022 [facility], [facility] [place], [address], 21:01:21 Medication Orders topiramate 25 mg tablet [address]/Pharmacy #[id number], [address] [place], [address], 15:15:53 propranolol ER 80 mg capsule,24 hr,extended release [address]/Pharmacy #[id number], [address] [place], [address], 15:12:27 Patient TargetsNo targets recorded. Patient Instructions Encounter Date Encounter Id Patient Instructions Last Modified By Organization Details Last Modified Time 07/10/2022 [id number] Review of pathwa y of choice of propranolol: She was on metoprolol for migraine prevention for about a week and thought that it might have been starting to work for her headache syndrome but then stopped because of rash. The rash turned out to be poison chris. She never restarted metoprolol. She was not on the metoprolol for blood pressure control, she emphasizes. She had high blood pressure in the past (2002 per chart) but has no problems with blood pressure more recently. Previous discussions: July 2021: Propranolol substitution for metoprolol, since initial neurology consultation May 01, 2020, has helped significantly although partially. She again does not want to make any more changes. She had emphasized that there were long-term fluctuations and she wanted to presiding judge these. She wanted a 3-month follow-up but follow-up ended up being 1 year. Indeed, fluctuations have emerged with at least 2 separate weeks with daily headaches with great humidity. Nevertheless, even with understanding these fluctuations she declines any attempt for optimization of migraine prevention. Initial consultation: Her wonders whether medications could cause part of her headache. Long-term opiate use can cause medication overuse headache. Her untreated sleep apnea may also be a chronic trigger for worsened headaches. She emphasizes that she cannot tolerate sleep apnea mask. BILLING Discussion across issues of diagnoses and management and same day associated chart review and management greater than 50% greater than 40 minutes [email or web address] Not available 07/10/2022 16:09:39 09/11/2022 [id number] Review of pathwa y of choice of propranolol: She was on metoprolol for migraine prevention for about a week and thought that it might have been starting to work for her headache syndrome but then stopped because of rash. The rash turned out to be poison chris. She never restarted metoprolol. She was not on the metoprolol for blood pressure control, she emphasizes. She had high blood pressure in the past (2002 per chart) but has no problems with blood pressure more recently. Previous discussions: July 10, 2022: Migraine is both increased in frequency and change in character? s witched from right to left side mostly. I do not have a good reason. Increase in propranolol has not helped and moderate dose of topiramate has not helped. I will get head CT and increase topiramate. If head CT is unrevealing, we will titrate topiramate to 50 mg twice daily and if this does not help, consider CGRP inhibitor medication. July 2021: Propranolol substitution for metoprolol, since initial neurology consultation May 01, 2020, has helped significantly although partially. She again does not want to make any more changes. She had emphasized that there were long-term fluctuations and she wanted to presiding judge these. She wanted a 3-month follow-up but follow-up ended up being 1 year. Indeed, fluctuations have emerged with at least 2 separate weeks with daily headaches with great humidity. Nevertheless, even with understanding these fluctuations she declines any attempt for optimization of migraine prevention. Initial consultation: Her wonders whether medications could cause part of her headache. Long-term opiate use can cause medication overuse headache. Her untreated sleep apnea may also be a chronic trigger for worsened headaches. She emphasizes that she cannot tolerate sleep apnea mask. BILLING The 2021 Discussion across issues of diagnoses and management and same day associated chart review and management greater than 50% greater than 70 minutes [email or web address] Not available 09/11/2022 16:34:00 Reason for Referral None Reported. Results Created Date Observation Date Name Description Value Unit Range Abnormal Flag Note LastModifiedBy Organization Detail LastModifiedTime 07/23/20 22 07/23/2022 CT, head + brain , w/o contr ast CT Head/B rain W/O Contra st INDICA TION: Reason : G43.10 9 MIGRAI NE W AURA; Clinic al Questi on(s): Other: TECHNI QUE: Noncon trast head CT using axial techni que and recons tructe d in axial and mims l planes . Iterat marylu recons tructi on techni ques are used to optimi ze dose and image qualit y. CTDIvo l Head: 48.40 mGy, DLP Head: 774 mGy*cm . COMPAR TRIP: None. FINDIN GS: Clinical Laboratory Technician view findin gs, lines and tubes: None. BRAIN AND EXTRA- AXIAL SPACES : No parenc hymal hemorr ejsús, midlin e shift, or mass effect . Mondragon-w lucio matter differ entiat ion is well preser esther. No acute infarc t. Ventri cles, sulci, and basila r cister ns are normal . No white matter lesion s. No subara chnoid hemorr jesús. No subdur al or epidur al collec tion. CALVAR IUM, SKULL BASE, AND SOFT TISSUE S: No fractu res or suspic ious bony lesion s. The parana susan sinuse s and mastoi d air cells are clear. Visual ized orbits and globes are intact . The extrac ranial soft tissue s are unrema rkable . IMPRES TACOS: No acute intrac ranial pathol ogy. WSN: [id number] Orderi ng Physic jamison: Erlinda Singh Dictat ed By: Analisa Gómez i, MD Dictat ed Date/T leodan: 8:50 pm Review ed By: Analisa Gómez i, MD Signed By: Analisa Gómez i, MD Signed Date/T leodan: 8:50 pm Transc ribed By: CSB Transc ribed Date/T leodan: 8:49 pm Patien t Class: [address] (Outpt Imaging) [address] [place], [address], 07/25/2022 09:44:45 07/23/20 22 07/23/2022 CT, head, w/o contr ast No observ ation record ed. [address] [place], [address], 07/25/2022 09:45:34 Result Notes None recorded. Procedures Surgical History Date Name Laterality Status Provider Name and Address Organization Details Recorded Time 09/11/2022 DATA REVIEW completed SRIDEVI VELA PA-C [address] [place] [address] [place], [address], [facility] 09/11/2022 16:12:33 Imaging Results Imaging Date Name Status LastModified by Organiz ation Details LastModified Time 07/23/2022 CT, head + brain, w/o contrast [facility] [facility] [address] [place], [address], 07/25/2022 09:44:45 07/23/2022 CT, head, w/o contrast completed [address] [place], [address], 07/25/2022 09:45:34 Procedure Notes None recorded. Medical Equipment None Reported. Medications Name Sig Start Date Stop Date Status Note LastModified by Organization Details LastModified Time cyclobenz aprine 10 mg tablet TAKE 1 TABLET BY MOUTH TWICE A DAY active Not Available Not Available No t Available amoxicill in 500 mg capsule TAKE ONE CAPSULE EVERY 8 HOURS UNTIL FINISHED active Not Available Not Available No t Available furosemid e 40 mg tablet TAKE 1 & 1/2 TABLETS BY MOUTH DAILY active Not Available Not Available No t Available pilocarpi ne 5 mg tablet TAKE 1 TABLET BY MOUTH EVERY MORNING AND 1 TABLET BY MOUTH EVERY EVENING active Not Available Not Available No t Available doxycycli ne hyclate 100 mg capsule TAKE 1 CAPSULE BY MOUTH TWICE A DAY FOR 7 DAYS active Not Available Not Available No t Available fosfomyci n trometham ine 3 gram oral packet DISSOLVE 1 PACKET IN 4OZ WATER AND DRINK BY MOUTH EVERY OTHER DAY active Not Available Not Available No t Available ibuprofen 800 mg tablet TAKE 2 TABLETS BY MOUTH EVERY DAY DIRECTED active Not Available Not Available No t Available ampicilli n 500 mg capsule TAKE 1 CAPSULE BY MOUTH THREE TIMES A DAY FOR 3 DAYS active Not Available Not Available No t Available sumatript an 100 mg tablet TAKE 1 TABLET EVERY DAY NEEDED *MAX 54 TABS PER 135 DAYS PER INSUR active Not Available Not Available No t Available alendrona te 70 mg tablet TAKE 1 TABLET BY MOUTH ONE TIME PER WEEK active Not Available Not Available No t Available Elmiron 100 mg capsule active Not Available Not Available Not Available topiramat e 25 mg tablet TAKE 3 TABLETS BY MOUTH EVERY DAY AT BEDTIME FOR 30 DAYS. 09/11 completed She is now taking topirama te 100mg from PCP Not Available Not Available Not Available amoxicill in 500 mg tablet TAKE 1 TABLET BY MOUTH 3 TIMES A DAY FOR 3 DAYS active Not Available Not Available No t Available oxycodone 15 mg tablet TAKE 2 TABLETS BY MOUTH TWICE A DAY FOR 28 DAYS DNF 09/01/22 active Not Available Not Available No t Available baclofen 10 mg tablet active Not Available Not Available Not Available cephalexi n 500 mg capsule TAKE 1 CAPSULE BY MOUTH 3 TIMES A DAY FOR 7 DAYS active Not Available Not Available No t Available acyclovir 5 % topical ointment APPLY TOPICALL Y TO AFFECTED AREA FIVE TIMES A DAY FOR 4 DAYS AT ONSET OF SYMPTOMS active Not Available Not Available No t Available nitrofura ntoin macrocrys ana 100 mg capsule PLEASE SEE ATTACHED FOR DETAILED DIRECTIO NS active Not Available Not Available No t Available propranol ol ER 80 mg capsule,2 4 hr,extend ed release TAKE 1 CAPSULE BY MOUTH EVERY DAY 09/11 completed Not Available Not Available Not Available morphine ER 15 mg tablet,ex tended release TAKE 1 TABLET BY MOUTH 3 TIMES A DAY FOR 28 DAYSD NF 09/06/22 active Not Available Not Available No t Available acyclovir 200 mg capsule TAKE 1 CAPSULE BY MOUTH THREE TIMES A DAY NEEDED active Not Available Not Available No t Available nystatin 100,000 unit/gram topical powder active Not Available Not Available Not Available propranol ol ER 120 mg capsule,2 4 hr,extend ed release TAKE 1 CAPSULE BY MOUTH EVERY DAY 09/11 completed She has stopped taking it Not Available Not Available Not Available PreviDent 5000 Plus 1.1 % cream active Not Available Not Available Not Available topiramat e 100 mg tablet TAKE 1 TABLET BY MOUTH EVERY DAY active Not Available Not Available No t Available methylphe nidate ER 36 mg tablet,ex tended release 24 hr active Not Available Not Available Not Available cyclospor ine 0.05 % eye drops in a dropperet te active Not Available Not Available Not Available nitrofura ntoin monohydra te/macroc rystals 100 mg capsule TAKE 1 CAPSULE BY MOUTH EVERY 12 HOURS FOR 7 DAYS active Not Available Not Available No t Available duloxetin e 60 mg capsule,d elayed release active Not Available Not Available Not Available blood pressure test kit-large cuff active Not Available Not Available Not Available PreviDent 5000 Booster Plus 1.1 % dental paste PLEASE SEE ATTACHED FOR DETAILED DIRECTIO NS active Not Available Not Available No t Available Paxlovid 300 mg (150 mg x 2)-100 mg tablets in a dose pack 2 TABLETS OF NIRMATRE LVIR, 1 TABLET OF RITONAVI R BY MOUTH TOGETHER TWICE A DAY FOR 5 DAYS active Not Available Not Available No t Available Vitals None Recorded Social History None recorded. Functional Status None recorded. Mental Status None recorded. Family History Nothing Reported. Medical History No medical history recorded. Gynecological HistoryNo gynecological history recorded. Obstetrics History GPAL:G 0 P 0 0 0 0 Past Encounters Encounter ID Performer Location Encounter Start Date Encounter Closed Date Diagnosis/Indication Diagnosis SNOMED-CT Code Diagnosis ICD10 Code Diagnosis Note [id number] Cralos Singh MD [facility] [address] [place] [address] [place] [id number] 07/27/2021 12:35:32 07/30/2021 08:21:55 Migraine with aura [id number] G43.109 [id number] Carlos Singh MD [facility] [address] [place] [address] [place] [id number] 07/10/2022 15:05:03 07/10/2022 16:58:13 Migraine with aura [id number] G43.109 [id number] Carlos Singh MD [facility] [address] [place] [address] [place] [id number] 09/11/2022 13:55:45 10/02/2022 19:34:46 Migraine with aura [id number] G43.109 Health Concerns Section Related Observation LastModified by Organization Detai ls LastModified Time None Recorded Concern Status LastModified by Organization Details LastModified Time None Recorded Advance Directives Directive None Recorded Payers Encounter Date Sequence Insurance Name Policy Number Policy Colby Covered Member ID Colby Member ID Guarantor Name 07/27/2021 2 [place] Beena Bright [id number] Beena Bright 07/27/2021 1 [place] [facility] Beena Bright [id number] Beena Bright 07/10/2022 2 [facility]: [facility] EMPL[facility] [employer] Beena Bright [id number] Beena Bright 07/10/2022 1 [place] [facility] Beena Bright [id number] Beena Bright 09/11/2022 2 [facility]: [facility] EMPL[employer]EE PRO[employer] Beena Bright [id number] Beena Bright 09/11/2022 1 MEDICARE [place]: [facility] Beena Bright [id number] Beena Bright Notes Date Note Type Note Provider Name and Address Organization Details Recorded Time 07/27/2021 text/html Follow up of heather winters and stress headache. Past history includes chronic pain, on opiates for back pain, diagnosis of fibromyalgia per chart, status post thoracic spine abscess T1-T4, with subsequent laminectomy/posterior decompression; and subsequently wheelchair-bound with a little movement residual in legs, continent with suprapubic catheter and daily digital stimulation program; depression, history of ulcerative colitis per chart, sleep apnea, untreated; peripheral neuropathy per chart. She is unaccompanied. Not present: her , Srinivas. Despite these issues, she feels that her headaches are basically unchanged. We reviewed that last year she estimated 6-7/month gone in an hour with Imitrex. She estimated stress headaches 2 to 3/week, 4-5/10 intensity, got in 30 minutes without medicine. She cannot make those estimates now as humidity is the major trigger and it has been very humid the last few weeks. There have been 2 weeks when headaches have been almost daily. She delays Imitrex as she figures out if it is going to be a real migraine. If/when she takes Imitrex the migraine still goes away in an hour. She reports no major health issues? e xcept for the shoulders? o bobbi the past year and no new diagnoses. Climara patch has been discontinued. Otherwise there have been no medication changes. Presenting symptomatology is reviewed from initial neurology consultation May 01, 2020: She has had migraines since her teenage years. She has had frequent migraine and stress headache in recent years. Migraine occurs 5-11 days out of a typical month. Migraine is always unilateral with focus through the right or left eye, 8/10 steady pain like a dagger into the brain, with nausea and light sensitivity. Stress headache occurs separately bilaterally across her forehead or across the base of her skull. Each headache occurs 3 or 4 times per week and the 2 different types of stress headache occur at different parts of a single day. The back of the head stress headache varies from 4-5/10 up to 9-10/10, even worse than her migraine. The forehead stress headache is typically 7-8/10. Both types of stress headache have mild to moderate stomach discomfort, not really nausea. They also can both have photophobia and, at times, throbbing. For migraine, tries not to take Imitrex until she needs it even though healthcare providers have urged her to take it earlier. When she finally takes Imitrex, she takes it with a muscle relaxant. After about 45 minutes, the pain isnt better but she falls asleep. When she wakes, pain is often reduced to 4-5/10. She then struggles through the rest of her day or, if migraine worsens, she takes Imitrex again. Sometimes she is in bed a good part of the day because of migraine. With stress headache, she sometimes take ibuprofen 800 mg. These headaches tend to be shorter than migraine, lasting ~2-6 hours, usually ending before the end of the day. She tried amitriptyline for migraine prevention many years ago, up to a high dose, but stopped because it didnt help. Carlos Singh MD [address] [place] [address] [place], [phone], [facility] Neurology [facility] 07/27/2021 13:19:06 07/10/2022 text/html Follow up of heather winters and stress headache. Past history includes chronic pain, on opiates for back pain, diagnosis of fibromyalgia per chart, status post thoracic spine abscess T1-T4, with subsequent laminectomy/posterior decompression; and subsequently wheelchair-bound with a little movement residual in legs, continent with suprapubic catheter and daily digital stimulation program; depression, history of ulcerative colitis per chart, sleep apnea, untreated; peripheral neuropathy per chart. She is accompanied by her , Srinivas. After July 27, 2021 neurology follow-up encounter, ~11.5 months ago, headaches remain basically unchanged and manageable until sometime in 2021 when they slowly worsened until migrainous headaches that were 6 to 7/month became every day and she was no longer having any more mild time-limited stress headaches. The migraines can started anytime of the day. She can think of no triggers. She did begin to have more kidney stones including passing a big stone on . There has been no kidney stone pain, however, kidney stone was found by urology monitoring for kidney stones given her history. She passed a kidney stone on Friday but again without pain although she had bladder spasms and incontinence. Primary care increased propranolol ER from 80 mg that I had been prescribing up to 120 mg daily May 12, 2022. This seemed to help for short while but then daily migrainous headaches returned. Primary care started topiramate 25 mg 1 to 2 weeks ago and increased it to 50 mg two or 3 days ago. This has not made any difference. She has had no side effects to the propranolol increase or topiramate medication. She remembers no medication changes around the time that migrainous headache worse.Migraine headache is on the left side most of the time, except occasionally on the right the way it used to be. July 27, 2021 history when she reports migraine characteristics and good response to Imitrex: Her headaches are basically unchanged. We reviewed that last year she estimated 6-7/month gone in an hour with Imitrex. She estimated stress headaches 2 to 3/week, 4-5/10 intensity, got in 30 minutes without medicine. She cannot make those estimates now as humidity is the major trigger and it has been very humid the last few weeks. There have been 2 weeks when headaches have been almost daily. She delays Imitrex as she figures out if it is going to be a real migraine. If/when she takes Imitrex the migraine still goes away in an hour. Presenting symptomatology is reviewed from initial neurology consultation May 01, 2020: She has had migraines since her teenage years. She has had frequent migraine and stress headache in recent years. Migraine occurs 5-11 days out of a typical month. Migraine is always unilateral with focus through the right or left eye, 8/10 steady pain like a dagger into the brain, with nausea and light sensitivity. Stress headache occurs separately bilaterally across her forehead or across the base of her skull. Each headache occurs 3 or 4 times per week and the 2 different types of stress headache occur at different parts of a single day. The back of the head stress headache varies from 4-5/10 up to 9-10/10, even worse than her migraine. The forehead stress headache is typically 7-8/10. Both types of stress headache have mild to moderate stomach discomfort, not really nausea. They also can both have photophobia and, at times, throbbing. For migraine, tries not to take Imitrex until she needs it even though healthcare providers have urged her to take it earlier. When she finally takes Imitrex, she takes it with a muscle relaxant. After about 45 minutes, the pain isnt better but she falls asleep. When she wakes, pain is often reduced to 4-5/10. She then struggles through the rest of her day or, if migraine worsens, she takes Imitrex again. Sometimes she is in bed a good part of the day because of migraine. With stress headache, she sometimes take ibuprofen 800 mg. These headaches tend to be shorter than migraine, lasting ~2-6 hours, usually ending before the end of the day. She tried amitriptyline for migraine prevention many years ago, up to a high dose, but stopped because it didnt help. Carlos Singh MD [address] [place] [address], [phone], [facility] Neurology [facility] 07/10/2022 16:14:10 09/11/2022 text/html Follow up of heather winters and stress headache. Past history includes chronic pain, on opiates for back pain, diagnosis of fibromyalgia per chart, status post thoracic spine abscess T1-T4, with subsequent laminectomy/posterior decompression; and subsequently wheelchair-bound with a little movement residual in legs, continent with suprapubic catheter and daily digital stimulation program; depression, history of ulcerative colitis per chart, sleep apnea, untreated; peripheral neuropathy per chart. She is seen via telemedicine and is unaccompanied. Not present, her , Srinivas. At her last visit July 10 2022, we took over her topiramate and increased it from 50mg to 75 mg daily. Since then, she returned to see her PCP on August 05 who took the prescription back and increased it to 100 mg nightly. She has had no additional benefit. It is not helping but she has not had side effect from it. She has stopped propranolol. She had understood that she was supposed to switch from propranolol to topiramate, not add it on. She has a current filled prescription but she is not taking it. She explains that she has a long history of migraines since she was a teenager as well as a strong family history of migraines. And getting headaches nearly every day. She awakens in the morning with a headache and then she hydrates because she thinks that she might be dehydrated although she remarks that she also drinks water overnight. Then, she will get up and get going and if the headache gets worse she will take Imitrex. In the context of worsening migraines from 6-7/month to daily described at her last visit without a clear trigger (with mention of passing kidney stones last spring which were painless but caused worsening spasms in the setting of her spine injury which she discusses again today) head CT was obtained on August 12, 2022 which was negative for acute intracranial pathology and did not describe any chronic intracranial pathology in the findings. I asked if she had ever had a sleep study. She says that she has both central and obstructive sleep apnea which was diagnosed before her spine injury, so at least 11 years ago. She had seen sleep medicine of [facility] but found the BiPAP to be uncomfortable and was tossing and turning at night so did not continue it. She has also had an interval hospitalization from August 31 to September 05 for treatment of a UTI with IV antibiotics has completed her course and is now back home. She is also anticipating some upcoming dental work as she broke a bad tooth on a piece of crisp case while she was in the hospital. July 10, 2022 neurology follow-up reviewed:After July 27, 2021 neurology follow-up encounter, ~11.5 months ago, headaches remain basically unchanged and manageable until sometime in 2021 when they slowly worsened until migrainous headaches that were 6 to 7/month became every day and she was no longer having any more mild time-limited stress headaches. The migraines can started anytime of the day. She can think of no triggers. She did begin to have more kidney stones including passing a big stone on . There has been no kidney stone pain, however, kidney stone was found by urology monitoring for kidney stones given her history. She passed a kidney stone on Friday but again without pain although she had bladder spasms and incontinence. Primary care increased propranolol ER from 80 mg that I had been prescribing up to 120 mg daily May 12, 2022. This seemed to help for short while but then daily migrainous headaches returned. Primary care started topiramate 25 mg 1 to 2 weeks ago and increased it to 50 mg two or 3 days ago. This has not made any difference. She has had no side effects to the propranolol increase or topiramate medication. She remembers no medication changes around the time that migrainous headache worse.Migraine headache is on the left side most of the time, except occasionally on the right the way it used to be. July 27, 2021 history when she reports migraine characteristics and good response to Imitrex: Her headaches are basically unchanged. We reviewed that last year she estimated 6-7/month gone in an hour with Imitrex. She estimated stress headaches 2 to 3/week, 4-5/10 intensity, got in 30 minutes without medicine. She cannot make those estimates now as humidity is the major trigger and it has been very humid the last few weeks. There have been 2 weeks when headaches have been almost daily. She delays Imitrex as she figures out if it is going to be a real migraine. If/when she takes Imitrex the migraine still goes away in an hour. Presenting symptomatology is reviewed from initial neurology consultation May 01, 2020: She has had migraines since her teenage years. She has had frequent migraine and stress headache in recent years. Migraine occurs 5-11 days out of a typical month. Migraine is always unilateral with focus through the right or left eye, 8/10 steady pain like a dagger into the brain, with nausea and light sensitivity. Stress headache occurs separately bilaterally across her forehead or across the base of her skull. Each headache occurs 3 or 4 times per week and the 2 different types of stress headache occur at different parts of a single day. The back of the head stress headache varies from 4-5/10 up to 9-10/10, even worse than her migraine. The forehead stress headache is typically 7-8/10. Both types of stress headache have mild to moderate stomach discomfort, not really nausea. They also can both have photophobia and, at times, throbbing. For migraine, tries not to take Imitrex until she needs it even though healthcare providers have urged her to take it earlier. When she finally takes Imitrex, she takes it with a muscle relaxant. After about 45 minutes, the pain isnt better but she falls asleep. When she wakes, pain is often reduced to 4-5/10. She then struggles through the rest of her day or, if migraine worsens, she takes Imitrex again. Sometimes she is in bed a good part of the day because of migraine. With stress headache, she sometimes take ibuprofen 800 mg. These headaches tend to be shorter than migraine, lasting ~2-6 hours, usually ending before the end of the day. She tried amitriptyline for migraine prevention many years ago, up to a high dose, but stopped because it didnt help. Carlos Singh MD [address] [place] [address] [place], [phone], [facility] Neurology [facility] 09/30/2022 13:09:49 OBGyn Episode No OBEpisode recorded.
--- OUTSIDE RECORDS SUMMARY | 2025-01-11 17:57 | XMS_ITS | Encounter Summary ---
Author Organization [facility] Address [address] [place] [address] Care Team Providers Care Medical Office Manager Name Role Phone Hernan Dow Primary Care Provider [phone] Encounter Details Date Type Department Care Team (Late st Contact Info) Description 06/12/2023 Orders Only [facility] Interventional Radiology [address] [place] [address] Ryan Rodriguez MD [address] [place] [address] Social History Tobacco Use Types Packs/Day Years Used Date Smoking Tobacco: Never Assessed Comments Unknown Sex and Gender Information Value Date Recorded Sex Assigned at Female 08/06/2023 1:04 PM EDT Legal Sex Female 11:16 AM EDT Gender Identity Female 08/06/2023 1:04 PM EDT Sexual Orientation Straight 08/06/2023 1: 04 PM EDT documented as of this encounter Plan of Treatment Not on file documented as of this encounter Visit Diagnoses Not on filedocumented in this encounter Care Teams Medical Office Manager Relationship Specialty Start Date End Date Hernan Dow [address] [place] [address] PCP - General Family Medicine 04/29/23 documented as of this encounter
--- OUTSIDE RECORDS SUMMARY | 2025-01-11 17:57 | XMS_ITS | Referral Summary ---
Author Organization [facility] Address [address] [place] [address] Care Team Providers Care Teacher Emotionally Impaired Name Role Phone Hernan Dow Primary Care Provider [phone] Allergies Active Allergy Reactions Criticality Noted Date Comments Adhesive Tape-Silicones Rash 09/11/2016 Rash Cefazolin Dermatitis 09/11/2016 Diphenhydramine Hcl Other (see comments) 2021 makes me hyper Metaxalone Depression 09/11/2016 Depression Depression -(AKA Skelaxin) Sulfamethoxazole-Trimetho prim Dyspnea,Rash High 07/29/2018 Sulfasalazine Dermatitis 09/11/2016 Rash, SOB Medications aspirin 81 mg EC tablet Take by mouth. Activ e DULoxetine DR (CYMBALTA) 60 mg capsule 3 Active furosemide (LASIX) 40 mg tablet SMARTSI.5 Tablet(s) By Mouth Daily Active lidocaine (XYLOCAINE) 2% (20 mg/mL) jelly Apply topically to the affected area once daily as needed. Active methylphenidate HCl 36 mg CR tablet Take 36 mg by mouth once a day. Active morphine ER (MS CONTIN) 15 mg tablet SMARTSI Tablet(s) By Mouth 3 Times Daily Active oxyCODONE (ROXICODONE) 15 mg immediate release tablet SMARTSI Tablet(s) By Mouth Twice Daily Active topiramate (TOPAMAX) 200 mg tablet 3 Active cyclobenzaprine (FLEXERIL) 10 mg tablet SMARTSI Tablet(s) By Mouth Twice Daily Active baclofen (LIORESAL) 10 mg tablet Take 10 mg by mouth 3 times a day. Active vitamin B complex capsule Take 1 capsule by mouth once a day. Active LACTOBACILLUS ACIDOPHILUS ORAL Take by mouth. Active vitamin D3 25 mcg (1,000 unit) capsule Take 1 capsule by mouth once a day. Active SUMAtriptan (Imitrex) 100 mg tablet Take 100 mg by mouth daily as needed for migraine. May repeat dose once in 2 hours if no relief. Do not exceed 2 doses in 24 hours. Active ibuprofen (MOTRIN) 200 mg tablet Take 200 mg by mouth every 6 hours as needed for pain. Active PATIENT REPORTED OTC MEDICATION Medication Name: CBD Gummies PRN This entry is to document a patient-reporte d over the counter medication. Please do not continue this order for inpatient use. Active naloxone HCl (NARCAN) 4 mg/actuation nasal spray Administer 4 mg into affected nostril(s) daily as needed. Active Active Problems Problem Noted Date Diagnosed Date Neurogenic bladder 06/12/2023 Recurrent UTI 06/12/2023 Other hydronephrosis 06/12/2023 Social History Tobacco Use Types Packs/Day Years Used Date Smoking Tobacco: Never Smokeless Tobacco: Never Tobacco Cessation:Counseling Given: Not Answered Alcohol Use Standard Drinks/Week Comments Never 0 (1 standard drink = 0.6 oz pur e alcohol) Comments No Sex and Gender Information Value Date Recorded Sex Assigned at Female 08/06/2023 1:04 PM EDT Legal Sex Female 11:16 AM EDT Gender Identity Female 08/06/2023 1:04 PM EDT Sexual Orientation Straight 08/06/2023 1: 04 PM EDT Last Filed Vital Signs Vital Sign Reading Time Taken Comments Blood Pressure 110/72 10/29/2023 11:32 AM EST Pulse 75 10/29/2023 11:32 AM EST Temperature 36.7 ??C (98.1 ??F) 10/07/2023 8:15 AM ES T Respiratory Rate 16 10/07/2023 8:15 AM EST Oxygen Saturation 96% 10/07/2023 8:15 AM EST Inhaled Oxygen Concentration - - Weight 79.2 kg (174 lb 9.6 oz) 10/06/2023 12:30 PM EST Height 167.5 cm (5' 5.95 ) 10/06/2023 12:[address] Body Mass Index 28.23 10/06/2023 12:30 PM EST Plan of Treatment Not on file Procedures * Due to [place] [employer] law, this organization might not be sharing negative HIV tests. Procedure Name Priority Date/Time Associated Diagnosis Comments COLONOSCOPY 08/29/2022 from Last 3 Months or Most Recently Relevant to Health Maintenance Results * Due to [place] [employer] law, this organization might not be sharing negative HIV tests. * COLONOSCOPY (08/29/2022) 08/29/2022 us Onbase Scan [facility] Final Resu lt from Last 3 Months or Most Recently Relevant to Health Maintenance Insurance [facility] FEDERAL MEDICARE Advance Directives * Presumed Full Code (Latest Code Status on File) Date Activated Date Inactivated Comments 10/06/2023 2:21 PM 10/07/2023 3:52 PM Healthcare Agents on File Name Relationship Healthcare Agent Relationship Communication Giancarlo Bright Spouse Health Care Agent [email or web address] Vibha Goff Daughter [facility] Health Care Ag ent [email or web address] Care Teams Teacher Emotionally Impaired Relationship Specialty Start Date End Date Hernan Dow [address] [place] [phone] PCP - General Family Medicine 04/29/23
--- OUTSIDE RECORDS SUMMARY | 2025-01-11 17:57 | XMS_ITS | Clinical Summary ---
Author Organization [facility] Address [address] [place] [address] Care Team Providers Care Carton Marker Machine Name Role Phone Hernan Dow Primary Care Provider [phone] Allergies Active Allergy Reactions Criticality Noted Date [...] 06/12/2023 Recurrent UTI 06/12/2023 Other hydronephrosis 06/12/2023 Family History Medical History Relation Name Comments Heart disease Brother Asthma Father Bladder Cancer Father Hypertension Father Arthritis Mother COPD Mother Osteoarthritis Mother Stroke Mother Sleep apnea Sister Relation Name Status Comments Brother Sepsis gallblad eugenia causes Father Mother Sister Alive Social History Tobacco Use Types Packs/Day Years [...] 10/06/2023 12:30 PM EST Plan of Treatment Health Maintenance Due Date Last Done Comments Cologuard 1955 FOBT / Fit Test 1955 Hepatitis C Screening 1955 Sigmoidoscopy 1955 Mammogram 1995 Osteoporosis Screening 2005 COVID-19 Vaccine ( season) 2024 09/14/2022, 10/24/2021, 01/31/2021 Influenza Vaccine (#1) 2024 , 09/01/2022, 09/20/2021, Additional history exists Alcohol/Substance Use Screening 11/17/2024 Depression Screening and Follow-Up 11/17/2024 Health Care Proxy Review 11/17/2024 Social Drivers of Health Annual Screening 11/17/2024 Pneumococcal Vaccine: 50+ Years (3 of 3 - PCV20 or PCV21) 07/05/2025 07/05/2020, 07/12/2015 DTaP,Tdap,and Td Vaccines (3 - Td or Tdap) 04/03/2031 04/03/2021, 08/16/2010 Colon Cancer Screening 08/29/2032 Colonoscopy 08/29/2032 08/29/2022 Zoster Vaccines Completed 09/14/2019, 06/18, 12/18/2011 RSV Vaccine (60+ years old and patients) Completed 09/30/2023 Hepatitis B Vaccines Aged Out No long er eligible based on patient's age to complete this topic Procedures * Due to [place] [employer] law, this organization might not be sharing negative HIV tests. Procedure Name Priority Date/Time Associated Diagnosis Comments COLONOSCOPY 08/29/2022 from Last 3 Months or Most Recently Relevant to Health Maintenance Results * Due to [place] [employer] law, this organization might not be sharing negative HIV tests. * COLONOSCOPY (08/29/2022) 08/29/2022 us Onbase Scan [facility] Resu lt from Last 3 Months or Most Recently Relevant to Health Maintenance Insurance [facility] FEDERAL MEDICARE Advance Directives * Presumed Full Code (Latest Code Status on File) Date Activated Date Inactivated Comments 10/06/2023 2:21 PM 10/07/2023 3:52 PM Healthcare Agents on File Name Relationship Healthcare Agent Relationship Communication Giancarlo Hoangcassyangelicradha Spouse Health Care Agent [email or web address] Vibha Shell Daughter [facility] Health Care Ag ent [email or web address] Care Teams Carton Marker Machine Relationship Specialty Start Date End Date Hernan Dow [address] [place] [phone] PCP - General Family Medicine 04/29/23
--- OUTSIDE RECORDS SUMMARY | 2025-01-11 17:57 | XMS_ITS | Clinical Summary ---
Author Organization [facility] ity Address [address] [place] [address] Care Team Providers Care Curriculum Advisory Teacher Name Role Phone Unavailable Primary Care Provider Unavailabl e Social History Tobacco Use Types Packs/Day Years Used Date Smoking Tobacco: Never Assessed Comments Unknown Sex and Gender Information Value Date Recorded Sex Assigned at Not on file Legal Sex Female 2:12 AM EST Gender Identity Not on file Sexual Orientation Not on file Plan of Treatment Health Maintenance Due Date Last Done Comments Breast Cancer Screening 1955 DTaP,Tdap,and Td Vaccines (1 - Tdap) 1974 Pneumococcal Vaccine: 50+ Ye ars (1 of 1 - PCV) 2005 Zoster Vaccines (1 of 2) 2005 COVID-19 Vaccine (1 - 2023-2 5 season) 2024 Influenza Vaccine (#1) 2024 RSV Immunization Patients 60 + Years Old (1 - 1-dose 75+ series) 2030 HIB Vaccines Aged Out No longer eligi ble based on patient's age to complete this topic HPV Vaccines Aged Out No longer eligi ble based on patient's age to complete this topic Hepatitis A Vaccines Aged Out No long er eligible based on patient's age to complete this topic Hepatitis B Vaccines Aged Out No long er eligible based on patient's age to complete this topic IPV Vaccines Aged Out No longer eligi ble based on patient's age to complete this topic MMR Vaccines Aged Out No longer eligi ble based on patient's age to complete this topic Meningococcal ACWY Vaccine Aged Out N o longer eligible based on patient's age to complete this topic Meningococcal B Vacine Aged Out No lo nger eligible based on patient's age to complete this topic RSV Immunization Patients Un eugenia 20 months Aged Out No longer eligible b ased on patient's age to complete this topic Varicella Vaccines Aged Out No longer eligible based on patient's age to complete this topic
== END 2025-01-11 15:21 | disposition home or self-care (01) ==
LOC: HO.HUSH 14:19
PROVIDERS: PCP Family Medicine; Visit Provider Urology
DX: N31.9 Neuromuscular dysfunction of bladder, unspecified (principal); N39.0 Urinary tract infection, site not specified
CPT/HCPCS: 99214

== ENCOUNTER → 2025-01-11 14:19 | Outpatient (BNVA) | payer MEDICARE, BC, SELFPAY | PROVIDERS: PCP Family Medicine; Visit Provider Urology | DX: N31.9 Neuromuscular dysfunction of bladder, unspecified (principal); N39.0 Urinary tract infection, site not specified | CPT/HCPCS: 99212 ==

== ENCOUNTER 2025-04-04 13:53 | Outpatient (REF) | payer MEDICARE, BC, SELFPAY ==
--- NOTE | ~2025-04-04 | US_ITS ---
EXAMINATION: US RETROPERITONEAL LIMITED (RENAL ONLY) CLINICAL INFORMATION: Calculus of kidney. COMPARISON: None available. TECHNIQUE: Real-time imaging of the kidneys. FINDINGS: RIGHT KIDNEY: 9.6 x 5.6 x 5.0 cm (SAG x AP x TRV). The kidney is normal in size, contour, and echogenicity. Renal cortical thickness is normal. No calculi or focal parenchymal lesions. No hydronephrosis. LEFT KIDNEY: 7.9 x 3.9 x 3.2 cm (SAG x AP x TRV). The kidney is normal in size, contour, and echogenicity. Renal cortical thickness is normal. No hydronephrosis. There is an upper pole simple cyst measuring 0.8 cm. There is a mid pole simple cyst measuring 1.0 cm. There is a calculus in the midpole measuring 3 x 4 x 3 mm. US/US renal BI IMPRESSION: 1. Left midpole nonobstructing calculus measuring 3 x 4 x 3 mm. 2. 2 small simple cysts of the left kidney. 3. Otherwise normal examination. Electronically signed by: Yossi Akins MD 04/04/2025 03:26 PM EDT
--- OUTSIDE RECORDS SUMMARY | 2025-04-04 13:56 | XMS_ITS | Clinical Summary ---
Author Organization [facility] [address] ity Address [address] [place] [address] Care Team Providers Care Slab Depiler Operator Name Role Phone Unavailable Primary Care Provider [...] - 2023-2 5 season) 2024 Influenza Vaccine (Season Ended) 2025 RSV Immunization Adult Patie nts (1 - 1-dose 75+ series) 2030 HIB [...] age to complete this topic Meningococcal B Vaccine Aged Out No l onger eligible based on patient's age to complete this topic RSV Immunization Patients Un eugenia 20 months Aged Out No longer eligible b ased on patient's age to complete this topic Varicella Vaccines Aged Out No longer eligible based on patient's age to complete this topic
--- OUTSIDE RECORDS SUMMARY | 2025-04-04 13:56 | XMS_ITS | Clinical Summary ---
Author Organization [facility] Address [address] [place] [address] Care Team Providers Care Clinical Document Improvement Educator Name Role Phone Unavailable Primary Care Provider [...]
--- OUTSIDE RECORDS SUMMARY | 2025-04-04 13:56 | XMS_ITS | Referral Summary ---
Author Organization [facility] Address [address] [place] [address] Care Team Providers Care Supervisor Cellars Name Role Phone Hernan Dow Primary Care Provider [phone] Allergies Active Allergy Reactions Criticality Noted Date [...] Not on file Procedures * Due to [place] Nex[employer] law, this organization might not be sharing negative HIV tests. Procedure Name Priority Date/Time Associated Diagnosis Comments COLONOSCOPY 08/29/2022 from Last 3 Months or Most Recently Relevant to Health Maintenance Results * Due to [place] [employer] law, this organization might not be sharing negative HIV tests. * COLONOSCOPY (08/29/2022) 08/29/2022 us Onbase Scan [facility] Final Resu lt from Last 3 Months or Most Recently Relevant to Health Maintenance Insurance [facility] FEDERAL MEDICARE Advance Directives * Presumed Full Code (Latest Code Status on File) Date Activated Date Inactivated Comments 10/06/2023 2:21 PM 10/07/2023 3:52 PM Healthcare Agents on File Name Relationship Healthcare Agent Relationship Communication Giancarlo Bright Spouse Health Care Agent [email or web address] Goff Daughter Alternate Health Care Ag ent [email or web address] Care Teams Supervisor Cellars Relationship Specialty Start Date End Date Hernan Dow [address] [place] [phone] PCP - General Family Medicine 04/29/23
--- OUTSIDE RECORDS SUMMARY | 2025-04-04 13:56 | XMS_ITS | Encounter Summary ---
Author Organization [facility] Address [address] [place] [address] Care Team Providers Care Tobacco Dipper Name Role Phone Hernan Dow Primary Care Provider [phone] Encounter Details Date Type Department Care Team (Late st Contact Info) Description 06/12/2023 Orders Only [facility] Interventional Radiology [address] [place] [address] Ryan Rodriguez MD [address] [place], [place] [id number] Social History Tobacco Use Types Packs/Day Years [...] on filedocumented in this encounter Care Teams Tobacco Dipper Relationship Specialty Start Date End Date Hernan Dow [address] [place] [address] PCP - General Family Medicine 04/29/23 documented as of this encounter
--- OUTSIDE RECORDS SUMMARY | 2025-04-04 13:56 | XMS_ITS | Data Portability ---
Author Organization [facility] [employer] Address [address] [place] [address] [place] [address] Care Team Providers Care Oil Program Compliance Specialist Name Role Phone NATIVIDAD MAY Primary Care Provider NATIVIDAD MAY Referring Provider Assessment Encounter Date Assessment Date Assessment LastModified by Organization Details LastModified Time 07/27/2021 07/27/2021 IMPRESSION: Chronic headache with migrainous features. Propranolol substitution for metoprolol, since initial neurology consultation May 01, 2020, has helped significantly although partially. She again does not want to make any more changes. 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 She wanted a 3-month follow-up but [...] please call us to help clarify things. [phone] [facility] [address] [place] [address] Phone [phone] INCREASE [...] previously went to sleep medicine services of [facility] at their [place] location. Her PCP has taken back topiramate [...] we will make arrangements for you to crop picker a sample. Here is information about [...] uncertain about your wish to continue at [facility], we will await arrangements for a follow-up. If I hear from you in the next few days that you would like to move forward with an Emgality trial, we will make arrangements for you to crop picker a sample loading dose and make a follow-up in 3 weeks to see how you do on it. I have reviewed chart note and agree with contents and with assessment/plan in particular. Carlos Singh MD, PhD [facility] [email or web address] Not available 09/30/2022 13:09:13 Plan of Treatment Reminders Order Date Submit Date Provider Last Modified By Organization Details Last Modified Time Details Appointments None recorded. Lab None recorded. Referral None recorded. Procedures None recorded. Surgeries None recorded. Imaging CT, head, w/o contrast - CT head without contrast for worsening headache 2021 022 [facility], [facility] [place], [address], 21:01:21 Medication Orders topiramate 25 mg tablet [address]/Pharmacy #[id number], [address] [place], [address], 15:15:53 propranolol ER 80 mg capsule,24 hr,extended release [address][id number], [address] [place], [address], 15:12:27 Patient TargetsNo targets recorded. 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 She wanted a 3-month follow-up but [...] mGy*cm . COMPAR TRIP: None. FINDIN GS: Glass Blowing Lathe Operator view findin gs, lines and tubes: None. BRAIN AND EXTRA- AXIAL SPACES : No parenc hymal hemorr jesús, midlin e shift, or mass effect . [...] leodan: 8:49 pm Patien t Class: [address] (Outpt Imaging) [address] [place], [address], 07/25/2022 09:44:45 07/23/20 22 07/23/2022 CT, head, w/o contr ast No observ ation record ed. [address] [place], [address], 07/25/2022 09:45:34 Result Notes None recorded. Procedures Surgical History Date Name Laterality Status Provider Name and Address Organization Details Recorded Time 09/11/2022 DATA REVIEW completed SRIDEVI VELA PA-C [address] [place] [address] [place], [address], Formerly [facility] 09/11/2022 16:12:33 Imaging Results Imaging Date Name Status LastModified by Organiz ation Details LastModified Time 07/23/2022 CT, head + brain, w/o contrast [facility] [facility] [address] [place], [address], 07/25/2022 09:44:45 07/23/2022 CT, head, w/o contrast completed [address] [place], [address], 07/25/2022 09:45:34 Procedure Notes None recorded. Medical [...] Code Diagnosis ICD10 Code Diagnosis Note [id number] Carlos Singh MD [facility] [address] [place] [address] [place] [address] 07/27/2021 12:35:32 07/30/2021 08:21:55 Migraine with aura [id number] G43.109 [id number] Carlos Singh MD [facility] [address] [place] [address] [place] [address] 07/10/2022 15:05:03 07/10/2022 16:58:13 Migraine with aura [id number] G43.109 [id number] SRIDEVI VELA PA-C [facility] [address] [place] [address] [place] [address] 09/11/2022 13:55:45 10/02/2022 19:34:46 Migraine with aura [id number] G43.109 Health Concerns Section Related Observation LastModified by Organization Detai ls LastModified Time None Recorded Concern Status LastModified by Organization Details LastModified Time None Recorded Advance Directives Directive None Recorded Payers Encounter Date Sequence Insurance Name Policy Number Policy Colby Covered Member ID Colby Member ID Guarantor Name 07/27/2021 2 [facility]: [place]PL[place] PROGRAM Beena Bright [id number] Beena Bright 07/27/2021 1 MEDICARE B-DE: [facility] Beena Bright [id number] Beena Bright 07/10/2022 2 [facility]: FEDERAL EMPLOYEE PROGRAM Beena Bright [id number] Beena Bright 07/10/2022 1 MEDICARE B-DE: [facility] Beena Bright [id number] Beena Bright 09/11/2022 2 [facility]: FEDERAL EMPLOYEE PROGRAM Beena Bright [id number] Beena Bright 09/11/2022 1 MEDICARE B-DE: [facility] Beena Bright [id number] Beena Bright Notes Date Note Type [...] because it didnt help. Carlos Singh MD [address] [place] [address], [phone], Formerly [facility] 07/27/2021 13:19:06 07/10/2022 text/html Follow up [...] because it didnt help. Carlos Singh MD [address] [place] [address], [phone], Formerly [facility] 07/10/2022 16:14:10 09/11/2022 text/html Follow up [...] ago. She had seen sleep medicine of [facility] but found the BiPAP to [...] because it didnt help. Carlos Singh MD [address] [place] [address] [place], [phone], Formerly [facility] 09/30/2022 13:09:49 OBGyn Episode No OBEpisode recorded.
--- OUTSIDE RECORDS SUMMARY | 2025-04-04 13:56 | XMS_ITS | Clinical Summary ---
Author Organization [facility] Address [address] [place] [address] Care Team Providers Care Child Custody Evaluator Name Role Phone Hernan Dow Primary Care Provider Allergies Active Allergy Reactions Criticality Noted Date [...] 1955 Hepatitis C Screening 1955 Sigmoidoscopy 1955 Medicare AWV 1956 Mammogram 1995 Osteoporosis Screening 2005 COVID-19 Vaccine ( season) 2024 09/14/2022, 10/24/2021, 01/31/2021 Alcohol/Substance Use Screening 11/17/2024 Depression Screening and Follow-Up 11/17/2024 Health Care Proxy Review 11/17/2024 Social Drivers of Health Annual Screening 11/17/2024 Pneumococcal Vaccine: 50+ Years (3 of 3 - PCV20 or PCV21) 07/05/2025 07/05/2020, 07/12/2015 Influenza Vaccine (Season Ended) 2025 08/15/2023, 09/01/2022, 09/20/2021, Additional history exists DTaP,Tdap,and Td Vaccines (3 - Td or Tdap) 04/03/2031 04/03/2021, 08/16/2010 Colon Cancer Screening 08/29/2032 Colonoscopy 08/29/2032 08/29/2022 Zoster Vaccines Completed 09/14/2019, 06/18, 12/18/2011 RSV Vaccine (60+ years old and patients) Completed 09/30/2023 Hepatitis B Vaccines Aged Out No long er eligible based on patient's age to complete this topic Procedures * Due to [place] [employer] law, this organization might not be sharing negative HIV tests. Procedure Name Priority Date/Time Associated Diagnosis Comments COLONOSCOPY 08/29/2022 from Last 3 Months or Most Recently Relevant to Health Maintenance Results * Due to [place] [employer] law, this organization might not be sharing negative HIV tests. * COLONOSCOPY (08/29/2022) 08/29/2022 us Onbase Scan [facility] Final Resu lt from Last 3 Months or Most Recently Relevant to Health Maintenance Insurance [facility] FEDERAL MEDICARE Advance Directives * Presumed Full Code (Latest Code Status on File) Date Activated Date Inactivated Comments 10/06/2023 2:21 PM 10/07/2023 3:52 PM Healthcare Agents on File Name Relationship Healthcare Agent Relationship Communication Giancarlo Parikh Spouse Health Care Agent [email or web address] Vibha Goff [facility] Health Care Ag ent [email or web address] Care Teams Child Custody Evaluator Relationship Specialty Start Date End Date Paloma Hernan [address] [place] [address] PCP - General Family Medicine 04/29/23
== END 2025-04-04 13:54 | disposition home or self-care (01) ==
LOC: HO.US 13:53
PROVIDERS: PCP Family Medicine; Visit Provider Urology
DX: N20.0 Calculus of kidney (principal)
CPT/HCPCS: 76775

== ENCOUNTER → 2025-04-04 13:57 | Outpatient (BNV) | payer MEDICARE, BC, SELFPAY | PROVIDERS: PCP Family Medicine; Visit Provider Radiology Diagnostic Radiology | DX: N20.0 Calculus of kidney (principal); N28.1 Cyst of kidney, acquired | CPT/HCPCS: 76775 ==

== ENCOUNTER 2025-06-15 14:59 | Outpatient (AMB) | payer MEDICARE, BC, SELFPAY ==
--- NOTE | 2025-06-15 15:15 | A.OFFVIS_ITS ---
Intake Visit Reasons: 6m followup Intake Note: Patient is present for 6 MO follow up for neurogenic Bladder Urology Medication:OXYBUTYNIN, VIT-C, Methenamine Antibiotic Allergy:SULFA,CEFAZOLIN,TRIMETHOPRIM Blood Thinner:ASPIRIN Net Software Architect Required: No Accompanied by: Spouse Allergies cefazolin Allergy (Intermediate, Verified 01/11/25 14:37) dermatitis diphenhydramine Allergy (Intermediate, Verified 01/11/25 14:37) other sulfamethoxazole (From Sulfamethoxazole-Trimethoprim) Allergy (Intermediate, Verified 01/11/25 14:37) dyspnea trimethoprim (From Sulfamethoxazole-Trimethoprim) Allergy (Intermediate, Verified 01/11/25 14:37) dyspnea metaxalone Adverse Reaction (Intermediate, Verified 01/11/25 14:37) Depression adhesive tape silicones Allergy (Intermediate, Uncoded 01/11/25 14:37) Rash HPI Comments Details: Beena is a pleasant female. She is a patient of . She has seen for the following urologic conditions - paraplegic with neurogenic bladder - recurrent UTI Six-month follow-up Has been on vitamin-C with methenamine for suppression Oxybutynin for bladder spasm Has had ongoing recent leakage starting day 7 or 8 after catheter change. Would like to increase catheter change from every 2 weeks to every week Will require extra Bowman catheters, catheter change kit and leg bag This is required in order to try to prevent urosepsis with ICU admission and to minimize sacral decubitus breakdown secondary to urine Uses 20 [place] Bard silastic catheter for suprapubic drainage Required to change catheter every 1 weeks If does not change catheter every 1 weeks has detrimental urinary tract infection. These have previously resulted in sepsis with ICU admission. Neurogenic bladder Longstanding paraplegia Suprapubic tube Does not cycle bladder Frequent UTIs - had followed with Dr. Dwyer for many years. On vitamin-C and methenamine. Discussion regarding bladder mucosal protection with bladder cycling Botox - May 2024, 10/10 Recurrent UTI Microbiology - 09/09 pansensitive E coli COUNTS INCLUDE 234 BEDS AT THE [facility] Medical History (Updated 01/11/25 @ 15:20 by Daniele Hoskins MD) Peripheral neuropathy HTN (hypertension) Depression Femur fracture Sleep apnea PONV (postoperative nausea and vomiting) Paraplegia Osteoporosis Deep vein thrombosis Fibromyalgia Heart murmur Suprapubic catheter Other hydronephrosis Recurrent UTI Neurogenic bladder Surgical History (Updated 09/30/24 @ 10:23 by Alma Delia Bonilla RN) Hx of cystoscopy H/O lumbosacral spine surgery History of hernia repair History of gastric bypass History of cholecystectomy History of carpal tunnel release Family History (Updated 04/23/24 @ 14:39 by DAMION Gauthier) Other Arthritis COPD (chronic obstructive pulmonary disease) OA (osteoarthritis) Stroke Urinary bladder cancer Social History (Updated 04/23/24 @ 14:40 by DAMION Gauthier) Patient Tobacco Use Status: Never used Tobacco Review of Systems Const Denies chills and Denies fever(s) Card Reports no additional complaints and Denies syncope Resp Denies cough GI Denies abdominal pain and Denies heartburn Reports as per HPI and Denies change in libido Neuro Denies syncope Psych Denies change in libido Endo Denies change in libido Physical Exam Const General: cooperative, healthy appearing, comfortable and no acute distress Orientation/consciousness: patient oriented x3 HEENT Face and sinus: Yes normal facial exam Mouth: moist mucous membranes Neck Neck: Yes normal visual inspection, Yes full ROM and Yes trachea midline Chest Chest palpation & inspection: normal inspection of the chest Resp Effort & Inspection: normal respiratory effort, able to speak in complete sentences and no respiratory distress GI Inspection: Yes normal to inspection Back/Spine/Pelvis Cervical Spine: normal cervical lordosis Thoracic/Lumbar Spine: thoracic and lumbar spine normal to inspection Skin General skin exam: no rashes or lesions noted Neuro General: patient oriented x3, gait normal, tone normal and moves all extremities Extrem General: Yes normal to inspection and Yes capillary refill normal Assessment & Plan Assessment & Plan (1) Recurrent UTI: Code(s): N39.0 - Urinary tract infection, site not specified Category: Medical (2) Suprapubic catheter: Code(s): Z93.59 - Other cystostomy status Category: Medical (3) Urinary retention: Comment: Permanent urinary retention Code(s): R33.9 - Retention of urine, unspecified Category: Medical Plan Will require suprapubic tube catheter every week for the foreseeable future Patient Instructions: This note is constructed using voice recognition software. While every effort has been made to ensure accuracy manager database errors may have been included. Imaging studies, laboratory and physical exam results were discussed and reviewed in detail. No major barriers to patient understanding were identified. An opportunity to ask questions regarding the treatment plan was provided. All questions were answered. The patient expressed understanding and agreement with the above treatment plan. The patient is aware they should contact our office by phone for worsening of their current condition or the appearance of new urologic symptoms. Compliance is encouraged with any medications and followup testing that is ordered. It is a privilege to participate in the urologic care of your patient. If you have any questions or concerns regarding treatment for the above conditions, or other urologic issues, please do not hesitate to contact me. The office telephone contact is [phone]. Sincerely, Dr Daniele Hoskins MD, [facility] - Urology Compassionate Specialist Care for the Genitourinary System Coding Level of Care Code Est Pt Level 4 (64639) Complex EM visit Add On G2211 Diagnoses Recurrent UTI N39.0 Suprapubic catheter Z93.59 Urinary retention R33.9
--- OUTSIDE RECORDS SUMMARY | 2025-06-15 15:43 | XMS_ITS | Encounter Summary ---
Author Organization [facility] Address [facility] [email or web address] [address] [address] Phone Care Team Providers Care Rn Homecare Name Role Phone Hernan Dow MD Primary Care Provider [phone] Hernan Dow MD Primary Care Provider [phone] Encounter Details Date Type Department Care Team (Latest Contact Info) Description 12/05/2021 Transcribe Orders [facility] [address] [place] [address] Hernan Dow MD [address] [place] [address] [id number] Urinary tract infection without hematuria, site unspecified (Primary Dx) Social History Tobacco Use Types Packs/Day Years Used Date Smoking Tobacco: Never Smokeless Tobacco: Never Alcohol Use Standard Drinks/Week Comments No 0 (1 standard drink = 0.6 oz pur e alcohol) Comments Unknown Sex and Gender Information Value Date Recorded Sex Assigned at Female 06/12/2018 12:12 AM EDT Legal Sex Female 5:55 PM EST Gender Identity Female 06/12/2018 12:12 AM EDT Sexual Orientation Straight 06/12/2018 12 :12 AM EDT Occupation Industry Job Start Date Job End Date disabled former medical office supervisor Not on file Not on file Not on file documented as of this encounter Plan of Treatment Upcoming Encounters Date Type Department Care Team (Late st Contact Info) Description 06/16/2025 8:00 AM EDT Home Care Visit [facility] [address] [place] [address] Unscheduled, [facility] [address] [place] [phone] 06/20/2025 3:00 AM EDT Appointment [facility] [address] [place] [address] Kathy Solares, JAQUELIN [address] [place] [address] 06/27/2025 3:30 AM EDT Home Care Visit [facility] [address] [place] [phone] Kathy Solares, JAQUELIN [address] [place] [address] 07/04/2025 4:30 AM EDT Home Care Visit [facility] [address] [place] [address] Kathy Solares, JAQUELIN [address] [place] [address] 07/11/2025 2:30 AM EDT Home Care Visit [facility] [address] [place] [phone] Kathy Solares, JAQUELIN [address] [place] [email or web address] 07/18/2025 2:00 AM EDT Home Care Visit [facility] [address] [place] [phone] Kathy Solares, JAQUELIN [address] [place] [address] 07/25/2025 1:30 AM EDT Home Care Visit [facility] [address] [place] [phone] Kathy Solares, RN [address] [place] [address] 08/05/2025 Appointment [facility] [address] [place] [address] Kathy Solares, JAQUELIN [address] [place] [address] 09/02/2025 2:30 PM EDT Telemedicine [facility] Infectious Diseases [address] [place] [address] Marsha Capellan, COMPLIANCE PROGRAM MANAGER [address], 2nd [place] [address] [email or web address] documented as of this encounter Visit Diagnoses Diagnosis Urinary tract infection without hematuria, site unspecified- Primary documented in this encounter Additional Health Concerns Infection Onset Date Last Indicated Resolved Time MRSA Comment:Infection Loaded by the Load Infection Utility 08/23/2014 08/23/2014 01/01/2023 1:[address] documented as of this encounter Care Teams Rn Homecare Relationship Specialty Start Date End Date Hernan Dow MD [email or web address] PCP - General 05/17/14 10/28/23 Hernan Dow MD [address] [place] [phone] [email or web address] PCP - General Family Medicine 10/29/23 documented as of this encounter Additional Source Comments The information contained in this document represents components of the legal health record. It is not the complete legal health record.[facility]
--- OUTSIDE RECORDS SUMMARY | 2025-06-15 15:43 | XMS_ITS | Patient Health Record ---
Author Organization [facility] Address [address] [facility] [address] [place] [address] Care Team Providers Care Textile Screen Maker Name Role Phone Hernan Dow Primary Care Provider Leigh Ann Bonilla Unavailable [phone] Allergies Allergen (clinical drug ingredient) Drug/Non Drug Allergy documented on EMR Reaction Allergy Type Onset Date Status diphenhydramine Benadryl Unknown Drug Allergy A ctive Keflex Unknown Drug Allergy Active norepinephrine Levophed Unknown Drug Allergy Ac tive metaxalone Skelaxin Unknown Drug Allergy Active Adhesive Unknown Allergy Active Substance with sulfonamide structure and antibacterial mechanism of action (substance) Sulfa Antibiotics Unknown Drug Allergy A ctive Tegaderm Unknown Allergy Active Reason For Referral No Information Medications Medication SIG (Take, Route, Frequency, Duration) Notes Start Date End Date Status Vitamin C 500 MG as directed Orally Active Ibuprofen 800 MG 1 tablet with food o r milk as needed Orally every 8 hrs Active Vitamin B Complex - as directed Orally Active Furosemide 40 MG 1 tablet Orally Once a day Active Acyclovir 200 MG 1 capsule Orally Thr ee times a day Active Methenamine Hippurate 1 GM 1 tablet Oral ly Twice a day Active Vitamin D Active oxyCODONE HCl 15 MG 1 tablet Orally ever y 6 hrs Active Calcium Citrate-Vitamin D Active oxyBUTYnin Chloride 5 MG 1 tablet Orally Once a day Active Chlorhexidine Gluconate 0.12 % 15 mL swish for 30 seconds, then spit. Do not swallow. Mouth/Throat Twice a day Active Topiramate 200 MG 1 tablet Orally Once a day Active DULoxetine HCl 60 MG 1 capsule Orally On ce a day Active SUMAtriptan Succinate 100 MG 1 tablet as needed, may take second dose at least 2 hours after first dose up to 2 tablets per day as needed Orally Once a day Active Culturelle - as directed Orally Active Morphine Sulfate ER 15 MG 1 tablet Orall y every 12 hrs Active Acyclovir 5 % 1 application every 3 hours Externally Six times a day Active Methylphenidate HCl ER 36 MG 1 tablet in the morning Orally Once a day Active Nitrofurantoin Macrocrystal 100 MG 1 capsule at bedtime with food or milk Orally Once a day Active Baclofen 10 MG 1 tablet as needed Orally Twice a day Active Narcan 4 MG/0.1ML as directed Nasally Active Aspirin 81 81 MG 1 tablet Orally Once a day Active Problems Problem Type SNOMED Code ICD Code Onset Dates Problem Status W/U Status Risk Notes Problem Paraplegia (87760216) Paraplegia , unspecified (G82.20) Active confirmed Problem Chronic pain syndrom e (373391230) Chronic pain syndrome (G89.4) Active confirmed Problem Essential hypertension (66646633) Essential (primary) hypertension (I10) Active confirmed Problem Ulcerative colitis (18252971) Ulcerative colitis, unspecified, without complications (K51.90) Active confirmed Problem Pressure injury of sacral region of back stage III (disorder) (76250803654102) Pressure ulcer of sacral region, stage 3 (L89.153) Active confirmed Problem Chronic ulcer of kevin t (981093152) Non-pressure chronic ulcer of other part of left foot with fat layer exposed (L97.522) Active confirmed Problem Fibromyalgia (161251515) Fibromyalgia (M79.7) Active confirmed Problem Urostomy present (465204527) Other artificial openings of urinary tract status (Z93.6) Active confirmed Problem Obstructive sleep apnea (87165017) Obstructive sleep apnea (G47.33) Active confirmed Problem Hyperlipidemia (16777425) Hyperlipidemia (E78.5) Active confirmed Problem Asthma (005970440) Asthma (J45.909) Active conf irmed Problem Neurogenic bladder (517458703) Neurogenic bladder (N31.9) Active confirmed Problem Osteoporosis (24447994) Osteoporosis (M81.0) Active confirmed Problem Hyperparathyroidism (63708942) Hyperparathyroidism (E21.3) Active confirmed Vital Signs Heart Rate 52 /min 06/09/2025 Temperature 98.1 degrees Fahrenheit 06/09/2025 Respiratory Rate 18 /min 06/09/2025 Height-cm 167.64 cm 06/09/2025 Oximetry 93 % 06/09/2025 Blood pressure diastolic 62 mm Hg 06/09/2025 Weight-kg 81.65 kg 06/09/2025 Height 66 in 06/09/2025 Blood pressure systolic 112 mm Hg 06/09/2025 Weight 180 lbs 06/09/2025 BMI 29.05 kg/m2 06/09/2025 Encounters Encounter Location Date Provider Diagnosis [facility] [address] [address] 01/27/2025 Leigh Ann Smith Pressure ulcer of sacral region, stage 3 L89.153 ; Abrasion, left thigh, initial encounter S70.312A ; Paraplegia, unspecified G82.20 ; Neurogenic bladder N31.9 and Abrasion, left thigh, subsequent encounter S70.312D [facility] [address] [address] 02/10/2025 Leigh Ann Smith Pressure ulcer of sacral region, stage 3 L89.153 ; Paraplegia, unspecified G82.20 ; Neurogenic bladder N31.9 and Abrasion, left thigh, subsequent encounter S70.312D [facility] [address] [place] [phone] 02/17/2025 Leigh Ann Smith Pressure ulcer of sacral region, stage 3 L89.153 ; Paraplegia, unspecified G82.20 ; Neurogenic bladder N31.9 and Abrasion, left thigh, subsequent encounter S70.312D [facility] [address] [place] [phone] 02/25/2025 Leigh Ann Smith Pressure ulcer of sacral region, stage 3 L89.153 ; Paraplegia, unspecified G82.20 ; Neurogenic bladder N31.9 and Abrasion, left thigh, subsequent encounter S70.312D [facility] [address] [place] [phone] 03/11/2025 Leigh Ann Smith Pressure ulcer of sacral region, stage 3 L89.153 ; Paraplegia, unspecified G82.20 ; Neurogenic bladder N31.9 and Abrasion, left thigh, subsequent encounter S70.312D [facility] [address] [place] [phone] 04/26/2025 Leigh Ann Smith Paraplegia, unspecified G82.20 ; Non-pressure chronic ulcer of other part of left foot with fat layer exposed L97.522 ; Neurogenic bladder N31.9 ; Abrasion, left thigh, subsequent encounter S70.312D and Pressure ulcer of sacral region, stage 3 L89.153 [facility] [address] [place] [phone] 05/06/2025 Leigh Ann Smith Paraplegia, unspecified G82.20 ; Non-pressure chronic ulcer of other part of left foot with fat layer exposed L97.522 ; Neurogenic bladder N31.9 ; Abrasion, left thigh, subsequent encounter S70.312D and Pressure ulcer of sacral region, stage 3 L89.153 [facility] [address] [place] [phone] 05/13/2025 Leigh Ann Smith Paraplegia, unspecified G82.20 ; Non-pressure chronic ulcer of other part of left foot with fat layer exposed L97.522 ; Neurogenic bladder N31.9 ; Abrasion, left thigh, subsequent encounter S70.312D and Pressure ulcer of sacral region, stage 3 L89.153 [facility] [address] [place] [phone] 05/26/2025 Leigh Ann Smith Paraplegia, unspecified G82.20 ; Non-pressure chronic ulcer of other part of left foot with fat layer exposed L97.522 ; Neurogenic bladder N31.9 ; Abrasion, left thigh, subsequent encounter S70.312D and Pressure ulcer of sacral region, stage 3 L89.153 [facility] [address] [place] [phone] 06/09/2025 Leigh Ann Smith Paraplegia, unspecified G82.20 ; Non-pressure chronic ulcer of other part of left foot with fat layer exposed L97.522 ; Neurogenic bladder N31.9 ; Abrasion, left thigh, subsequent encounter S70.312D and Pressure ulcer of sacral region, stage 3 L89.153 [facility] [address] [phone] 01/25/2025 Leigh Ann Smith [facility] [address] [place] [phone] 03/24/2025 Leigh Annfinesse Smith [facility] [address] [facility] [address] [place] [address] 04/22/2025 Leigh Ann Smith [facility] [address] [facility] [address] [place] [address] 05/31/2025 Leigh Ann Smith [facility] [address] [place] [phone] 05/31/2025 Leigh Ann Smith [facility] [address] [facility] [address] [place] [address] 05/31/2025 Leigh Ann Smith Assessments Encounter Date Diagnosis (ICD Code) Assessment Notes Treatment Notes Treatment Clinical Notes Section Notes 01/27/2025 Pressure ulcer of sacral region, stage 3 (ICD-10 - L89.153) Vital signs are reviewed and are stable. She is afebrile. She can move to the right lateral recumbent position independently. The open area is located at the parasagittal right sacrococcygeal junction. The ulcer erodes well into the dermis and is nummular in appearance. There is scant periwound hyperemia without isrrael erythema, edema, warmth nor streaking. No maceration, papular appearance, rash nor skin breakdown. Wound base is laden with fibrin and slough. Left thigh abrasion is at the ischial tuberosity shows various stages of healing. There are no partial or full thickness ulcers in this area though healed eschar is seen with verigated epidermis. Indications for debridement are reviewed and carried out on the coccyx ulcer as outlined above. I used the curette to removed senescent material from the wound edges and well as devitalized fibrin and slough from the wound bed. No undermining. Post debridement appearance is improved. Alicia and healthy granulation tissue is seen over 100% of wound bed. Beena has longstanding paraplegia with new coccygeal ulcer from pressure for which wound care strategies including regular debridement and proper dressing changes are required. Nursing placed hydrofera blue on the open area with zinc oxide paste to the periwound followed by secondary dressing with hypafix tape. A thick layer of zinc oxide is placed over the right ischial abrasion with instructions for daily application after hygiene. Strategies for offloading and transfers were reviewed. She would be best served by PT evaluation in the home for mattress evaluation, which I will try to coordinate with primary care. She will return to wound care weekly. She will seek urgent or emergency care for fever, redness, odor or worsening wound integrity. Time spent on chart review, patient interaction and examination, coordination of care, documentation and patient education is 35 minutes. I, Leigh Ann Smith PA-C, examined, evaluated and treated the patient under the supervision of Himanshu Regalado MD, who was available for any questions or concerns that I may have had. 01/27/2025 Abrasion, left thigh, initial encounter (ICD-10 - S70.312A) 02/10/2025 Paraplegia, unspecified (ICD-10 - G82.20) 02/10/2025 Pressure ulcer of sacral region, stage 3 (ICD-10 - L89.153) Vital signs are reviewed and are stable. She is afebrile. I examined the coccygeal and left ischial areas with the dressings removed. The coccygeal ulcer is larger by measurement but improved clinically by way of shallowness and wound base quality. Scant periwound breakdown noted within the gluteal midline crevice. Left buttock abrasion at the ischial tuberosity is now open scantly with a nummular, measurable area, though it appears superficial. No erythema, edema, warmth nor streaking about the sacral and left buttock area. I reviewed the indications for debridement. She agreed to proceed. I carried out the procedure on the coccyx ulcer and left ischial wound as outlined above. I used the curette to remove senescent material from the wound edges. I subsequently excised devitalized fibrin and slough from the wound beds. Post debridement appearance is improved. Alicia and healthy granulation tissue is seen about the left ischial and coccygeal wound bases. Beena has longstanding paraplegia with coccygeal ulcer from pressure, friction and shear, possible moisture harboring. I recommend she continue with Purachol and regular debridement weekly. Proper dressing changes are required in the home. Nursing placed Purachol on the open area today with zinc oxide paste to the periwound, followed by secondary dressing with hypafix tape. A similar dressing was placed on the ischial wound. Strategies for offloading were reiterated as well as PT/OT evaluation in the home for mattress evaluation and mobility. They anticipate a home visit tomorrow. She will seek urgent or emergency care for fever, redness, odor or worsening wound integrity. Leigh Ann Butler PA-C, examined, evaluated and treated the patient under the supervision of Himanshu Regalado MD, who was available for any questions or concerns that I may have had. 02/17/2025 Pressure ulcer of sacral region, stage 3 (ICD-10 - L89.153) Beena returns to wound care for ischial and coccygeal ulcers. VNA and therapy evaluations were made since her last visit. She denies fever, redness, odor and significant wound drainage. Purachol dressing changes are occurring in the home by VNA. Vital signs are reviewed and are stable. She is afebrile. I examined the coccygeal and left ischial areas with the dressings removed. The wounds at these areas are improved. The central aspect of the coccygeal wound is nearly healed. I see copious epithelial tissue about this area. Ischial abrasion looks healed and there is scant eschar. Skin break down is no longer observed. Edema, warmth and streaking about the sacral and left buttock area are absent. I reviewed the indications for debridement. She agreed to proceed. I carried out the procedure on the coccyx ulcer as outlined above. I used the curette to remove senescent material from the wound edges. I subsequently excised devitalized fibrin and slough. Post debridement appearance is improved. The ischial region is not disturbed. Beena has longstanding paraplegia with coccygeal ulcer from pressure, friction and shear, possible moisture harboring. I recommend she continue with Purachol and that she return to wound care in one week. Proper dressing changes are required in the home as well as ongoing consultation with occupational therapy within the home regarding wound prevention strategies. Nursing placed Purachol on the open area today with zinc oxide paste to the periwound, followed by secondary dressing with hypafix tape. Strategies for offloading were reiterated. She will try friction reducing shorts such as spandex upon slide board transfers. They await further evaluation in the home for updated mattress for wound prevention. She will seek urgent or emergency care for fever, redness, odor or worsening wound integrity. Leigh Ann Butler PA-C, examined, evaluated and treated the patient under the supervision of Himanshu Regalado MD, who was available for any questions or concerns that I may have had. 02/25/2025 Pressure ulcer of sacral region, stage 3 (ICD-10 - L89.153) Beena returns to wound care for ischial and coccygeal ulcers. VNA and therapy evaluations were made since her last visit. She denies fever, redness, odor and significant wound drainage. Purachol dressing changes are occurring in the home by VNA. She is happy with her progress. Vital signs are reviewed and are stable. She is afebrile. I examined the coccygeal and left ischial areas with the dressings removed. The wounds at these areas are healed. The abraded dermis at the ischium shows durable and intact dermis. The coccygeal wound is healed but friable. This area requires continued surveillance. Skin break down of the periwound is no longer observed. Edema, warmth and streaking about the sacral and left buttock area remain absent. Debridement is not indicated. Beena has longstanding paraplegia with coccygeal ulcer from pressure, friction and shear and moisture harboring. I recommend she continue with zinc oxide paste and a secondary dressing until we see her next. Nursing applied this dressing today. I advised to discontinue Purachol. Strategies for reducing friction with slide board transfers were reiterated. Her spandex shorts are working well for this. She will return to wound care in two weeks to allow time for friable and newly healed coccygeal ulcer to contract and become durable. She will seek urgent or emergency care in the meantime for fever, redness, odor or worsening skin integrity. I, Leigh Ann Smith PA-C, examined, evaluated and treated the patient under the supervision of Himanshu Regalado MD, who was available for any questions or concerns that I may have had. 03/11/2025 Pressure ulcer of sacral region, stage 3 (ICD-10 - L89.153) Beena returns to wound care for ischial and coccygeal ulcers which are now healed. Primary care ordered her a new mattress. She denies fever, redness, odor and significant wound drainage. She is happy with her progress. Vital signs are reviewed and are stable. She is afebrile. I examined the coccyx and left ischial area with the dressings removed. The wounds at these areas are healed. The abraded dermis on the ischial tuberosity has scarred. The coccygeal wound shows durable healing without damage upon applying manual tension. Skin break down of the periwound is not observed. Edema, warmth and streaking about the sacral and left buttock area remain absent. Debridement is not indicated. Beena has longstanding paraplegia with healed coccyx pressure ulcer as well as healed friction/shear injury on the left ischium. I recommend she continue with zinc oxide paste to these newly healed areas for protection. Nursing applied this today. I recommended she continue strategies for reducing friction with slide board transfers including spandex shorts. She will return to wound care as needed. She may return at any time for nonhealing ulcers or wound drainage. I, Leigh Ann Smith PA-C, examined, evaluated and treated the patient under the supervision of Himanshu Regalado MD, who was available for any questions or concerns that I may have had. 04/26/2025 Paraplegia, unspecified (ICD-10 - G82.20) 04/26/2025 Non-pressure chronic ulcer of other part of left foot with fat layer exposed (ICD-10 - L97.522) Beena returns to wound care for a new toe ulcer after stubbing her toe. Vital signs were reviewed and were stable. She was afebrile. I examined the left distal first ray ulcer with the dressings removed. I observed 2+ dependent edema in the left leg. I noted a layer of thick adherent slough on the wound bed of the toe obscuring pink, healthy tissue. I did not appreciate expressible drainage nor undermining at the wound edges. There was no warmth nor streaking about the left leg, toes and forefoot. I palpated a strong DP pulse. I reviewed the indications for debridement of the distal toe wound and she agreed to proceed. I carried out the procedure on the left great toe as outlined above. I used the curette to remove adherent slough from the wound bed. I then debrided senescent material from the wound edges. Post debridement appearance was improved. I used silver nitrate over the lateral oozing area of the wound for hemostasis. I otherwise appreciated pink and healthy tissue on the wound bed following the procedure. Beena has a new left distal toe wound from trauma while seated in her wheelchair. I recommended she begin Aquacel Ag topically to the open area every other day with zinc oxide paste to the surrounding intact dermis for protection. Nursing applied this today. I discussed footwear modification and offloading of the toe while reclining or lying supine. Her nutrition is adequate. I asked her to trial Tubigrip to help with leg edema which she can remove at night. She cannot elevate her legs because of her suprapubic catheter. She will return to wound care as needed. She will return to wound care in one week. She will seek urgent or emergency care for fever, redness, odor or worsening wound integrity. Time spent on chart review, patient interaction and examination, documentation and patient education is 25 minutes. I, Leigh Ann Smith PA-C, examined, evaluated and treated the patient under the supervision of Himanshu Regalado MD, who was available for any questions or concerns that I may have had. 05/06/2025 Paraplegia, unspecified (ICD-10 - G82.20) 05/13/2025 Paraplegia, unspecified (ICD-10 - G82.20) 05/26/2025 Paraplegia, unspecified (ICD-10 - G82.20) 06/09/2025 Paraplegia, unspecified (ICD-10 - G82.20) 05/26/2025 Non-pressure chronic ulcer of other part of left foot with fat layer exposed (ICD-10 - L97.522) Vital signs were reviewed and were stable. She was afebrile. I examined the left distal first ray ulcer with the dressings removed. I observed maceration of fragile tissue around the wound from petroleum. I did not appreciate drainage from the area. I noted scant erythema proximal to the nail on the dorsal surface without open wound. There was dependent lower extremity edema but no warmth nor streaking about the left leg, toes and forefoot. I examined the left ischial area which was mostly contracted, with the exception of scant flaking area about 1 sq cm area without open wound. I reviewed the indications for debridement of the distal toe wound and she agreed to proceed. I carried out the procedure on the left great toe as outlined above. I used the curette to remove adherent slough and nonviable material from the wound. Post debridement appearance was improved. I controlled bleeding with direct pressure and silver nitrate. The macerated tissue peeled off with the debridement procedure, slightly increasing wound size. Beena has improved left distal toe wound from trauma while seated in her wheelchair. I recommend she continue Aquacel Ag topically to the open area every other day with zinc oxide paste to the surrounding intact dermis for protection. As petroleum products are known to macerate fragile new epithelial tissue, I do not recommend using them to any of Beena's open wounds. Nursing applied zinc oxide paste and Aquacel Ag today to the toe today. I then asked her to apply zinc oxide to the left proximal thigh and ischial dermis for protection. She will return to wound care in 1-2 weeks. She will seek urgent or emergency care for fever, redness, odor or worsening wound integrity. ILeigh Ann PA-C, examined, evaluated and treated the patient under the supervision of Himanshu Regalado MD, who was available for any questions or concerns that I may have had. 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 She was afebrile. I examined the left distal first ray ulcer with the dressings removed. I observed a small, dry and indurated scab over the toe wound which was completely closed. I did not appreciate warmth, redness or streaking about the lower extremities. I examined the left ischial area which was healed and dry. I then examined the coccyx where new tissue damage was recently reported. I saw a slit like area less than 3 mm in size which was dry and epithelialized. There were no open wounds in this area. Debridement was not indicated. Beena has a healed left distal toe wound from trauma while seated in her wheelchair. I recommend she apply betadine daily for 2 weeks to keep the area dry, then discontinue all topical treatment. I recommended she continue to use copious zinc oxide paste for protection on the ischial and coccygeal surfaces, particularly after hygiene. She may add the Aquacel Ag at any time when deterioration occurs. Nursing applied zinc oxide paste to the buttock area today and Betadine paint to the healed toe ulcer. She will return to wound care as needed or call with any concerns. Leigh Ann Butler PA-C, examined, evaluated and treated the patient under the supervision of Himanshu Regalado MD, who was available for any questions or concerns that I may have had. 05/13/2025 Non-pressure chronic ulcer of other part of left foot with fat layer exposed (ICD-10 - L97.522) Vital signs were reviewed and were stable. She was afebrile. I examined the left distal first ray ulcer with the dressings removed. I observed marked improvement in wound quality with epithelial growth within the wound bed. I did not appreciate drainage nor maceration at the wound edges. There was no warmth nor streaking about the left leg, toes and forefoot. I palpated a strong DP pulse. I reviewed the indications for debridement of the distal toe woundand she agreed to proceed. I carried out the procedure on the left great toe as outlined above. I used the curette to remove adherent slough and nonviable material from the wound. Post debridement appearance was improved. I controlled bleeding with direct pressure. I otherwise appreciated pink and healthy tissue on the wound bed following the procedure. Beena has improved left distal toe wound from trauma while seated in her wheelchair. I recommended she continue Aquacel Ag topically to the open area every other day with zinc oxide paste to the surrounding intact dermis for protection. Nursing applied this today. I asked her to continue compression garment of her choice. She will return to wound care in 1-2 weeks. She will seek urgent or emergency care for fever, redness, odor or worsening wound integrity. I, Leigh Ann Smith PA-C, examined, evaluated and treated the patient under the supervision of Himanshu Regalado MD, who was available for any questions or concerns that I may have had. 05/06/2025 Non-pressure chronic ulcer of other part of left foot with fat layer exposed (ICD-10 - L97.522) Beena returns to wound care for a toe ulcer without issue. It is measuring smaller. Vital signs were reviewed and were stable. She was afebrile. I examined the left distal first ray ulcer with the dressings removed. I observed unchanged dependent edema in the left leg. I noted improved appearance of the toe wound as well as new epithelial growth. I appreciated thin slough layer on the wound bed along with granular budding. I did not appreciate expressible drainage nor undermining at the wound edges. There was no warmth nor streaking about the left leg, toes and forefoot. I palpated a strong DP pulse. I reviewed the indications for debridement of the distal toe woundand she agreed to proceed. I carried out the procedure on the left great toe as outlined above. I used the curette to remove adherent slough from the wound bed. Post debridement appearance was improved. I controlled bleeding with direct pressure. I otherwise appreciated pink and healthy tissue on the wound bed following the procedure. Beena has improved left distal toe wound from trauma while seated in her wheelchair. I recommended she continue Aquacel Ag topically to the open area every other day with zinc oxide paste to the surrounding intact dermis for protection. Nursing applied this today. I asked her to continue Tubigrip to help with leg edema which she can remove intermittently. She will call us if a new antibiotic is prescribed for pending UTI. She cannot elevate her legs because of her suprapubic catheter. She will return to wound care as needed. She will return to wound care in one week. She will seek urgent or emergency care for fever, redness, odor or worsening wound integrity. I, Leigh Ann Smith PA-C, examined, evaluated and treated the patient under the supervision of Himanshu Regalado MD, who was available for any questions or concerns that I may have had. 04/26/2025 Neurogenic bladder (ICD-10 - N31.9) 03/11/2025 Paraplegia, unspecified (ICD-10 - G82.20) 02/25/2025 Paraplegia, unspecified (ICD-10 - G82.20) 02/10/2025 Neurogenic bladder (ICD-10 - N31.9) 02/17/2025 Paraplegia, unspecified (ICD-10 - G82.20) 01/27/2025 Paraplegia, unspecified (ICD-10 - G82.20) 01/27/2025 Neurogenic bladder (ICD-10 - N31.9) 02/10/2025 Abrasion, left thigh, subsequent encounter (ICD-10 - S70.312D) 02/17/2025 Neurogenic bladder (ICD-10 - N31.9) 02/25/2025 Neurogenic bladder (ICD-10 - N31.9) 03/11/2025 Neurogenic bladder (ICD-10 - N31.9) 04/26/2025 Abrasion, left thigh, subsequent encounter (ICD-10 - S70.312D) 05/26/2025 Neurogenic bladder (ICD-10 - N31.9) 06/09/2025 Neurogenic bladder (ICD-10 - N31.9) 05/06/2025 Neurogenic bladder (ICD-10 - N31.9) 05/13/2025 Neurogenic bladder (ICD-10 - N31.9) 05/26/2025 Abrasion, left thigh, subsequent encounter (ICD-10 - S70.312D) 06/09/2025 Abrasion, left thigh, subsequent encounter (ICD-10 - S70.312D) 04/26/2025 Pressure ulcer of sacral region, stage 3 (ICD-10 - L89.153) 03/11/2025 Abrasion, left thigh, subsequent encounter (ICD-10 - S70.312D) 05/06/2025 Abrasion, left thigh, subsequent encounter (ICD-10 - S70.312D) 05/13/2025 Abrasion, left thigh, subsequent encounter (ICD-10 - S70.312D) 02/25/2025 Abrasion, left thigh, subsequent encounter (ICD-10 - S70.312D) 02/17/2025 Abrasion, left thigh, subsequent encounter (ICD-10 - S70.312D) 01/27/2025 Abrasion, left thigh, subsequent encounter (ICD-10 - S70.312D) 05/13/2025 Pressure ulcer of sacral region, stage 3 (ICD-10 - L89.153) 05/06/2025 Pressure ulcer of sacral region, stage 3 (ICD-10 - L89.153) 06/09/2025 Pressure ulcer of sacral region, stage 3 (ICD-10 - L89.153) 05/26/2025 Pressure ulcer of sacral region, stage 3 (ICD-10 - L89.153) Plan Of Treatment No Information Insurance Providers Payer Name Payer Address Payer Phone Subscriber Number Group Number Insured Name Patient Relationship to Insured Coverage Start Date Coverage End Date Medicare [address] [place] [id number] Beena Bright Self - patient is the insured 2 [facility] [address] [place], [place] [id number] Beena Bright Self - patient is the insured 5 Medical (General) History Medical History History ICD Code Hyperparathyroidism E21.3 Hypokalemia E87.6 Depression F32.A Obstructive sleep apnea G47.33 Bradycardia R00.1 UTI (urinary tract infection) N39.0 Osteoporosis M81.0 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
--- OUTSIDE RECORDS SUMMARY | 2025-06-15 15:43 | XMS_ITS | Referral Summary ---
Author Organization [facility] Address [address] [place] [address] Care Team Providers Care Yard Coupler Name Role Phone Hernan Dow Primary Care Provider [phone] Allergies Active Allergy Reactions Criticality Noted Date [...] 75 10/29/2023 11:32 AM EST Temperature 36.7 C (98.1 F) 10/07/2023 8:15 AM EST Respiratory Rate 16 10/07/2023 8:15 AM EST Oxygen Saturation 96% 10/07/2023 8:15 AM EST Inhaled Oxygen Concentration - - Weight 79.2 kg (174 lb 9.6 oz) 10/06/2023 12:30 PM EST Height 167.5 cm (5' 5.95 ) 10/06/2023 12:[address] Body Mass Index 28.23 10/06/2023 12:30 PM EST Plan of Treatment Not on file Procedures * Due to [place] state law, this organization might not be sharing negative HIV tests. Procedure Name Priority Date/Time Associated Diagnosis Comments COLONOSCOPY 08/29/2022 from Last 3 Months or Most Recently Relevant to Health Maintenance Results * Due to [place] law, this organization might not be sharing negative HIV tests. * COLONOSCOPY (08/29/2022) 08/29/2022 us Onbase Scan [facility] Final Resu lt from Last 3 Months or Most Recently Relevant to Health Maintenance Insurance [facility] MEDICARE Advance Directives * Presumed Full Code (Latest Code Status on File) Date Activated Date Inactivated Comments 10/06/2023 2:21 PM 10/07/2023 3:52 PM Healthcare Agents on File Name Relationship Healthcare Agent Relationship Communication Giancarlo Bright Spouse Health Care Agent [email or web address] Goff Daughter [facility] Health Care Ag ent [email or web address] Yard Coupler Relationship Specialty Start Date End Date Hernan Dow [address] [place] [phone] PCP - General Family Medicine 04/29/23
--- OUTSIDE RECORDS SUMMARY | 2025-06-15 15:43 | XMS_ITS | Clinical Summary ---
Author Organization [facility] ity Address [address] [place] [address] Care Team Providers Care Clearance Rep Name Role Phone Unavailable Primary Care Provider [...] Vaccine (1 - 2023-2 5 season) 2024 Depression Screening 11/17/2024 Influenza Vaccine (#1) 2025 RSV Immunization Adult Patie nts (1 [...]
--- OUTSIDE RECORDS SUMMARY | 2025-06-15 15:43 | XMS_ITS | Clinical Summary ---
Author Organization [facility] Address [address] [place] [address] Care Team Providers Care Department Mgr Name Role Phone Unavailable Primary Care Provider [...] 1 - PCV) 2020 Influenza Vaccine (#1) 2025 RSV Adult > 60+ Yrs or Pregn ant (1 - 1-dose 75+ series) 2030 Hepatitis B Vaccines Aged Out No long er eligible based on patient's age to complete this topic RSV Ped < 20 months Aged Out No longe r eligible based on patient's age to complete this topic
== END 2025-06-15 16:12 | disposition home or self-care (01) ==
LOC: HO.HUSH 14:59
PROVIDERS: PCP Family Medicine; Visit Provider Urology
DX: N39.0 Urinary tract infection, site not specified (principal); Z93.59 Other cystostomy status; R33.9 Retention of urine, unspecified
CPT/HCPCS: 99214; G2211

== ENCOUNTER → 2025-06-15 14:59 | Outpatient (BNVA) | payer MEDICARE, BC, SELFPAY | PROVIDERS: PCP Family Medicine; Visit Provider Urology | DX: N39.0 Urinary tract infection, site not specified (principal); R33.9 Retention of urine, unspecified; G82.20 Paraplegia, unspecified; Z93.59 Other cystostomy status | CPT/HCPCS: 99212 ==